=== PATIENT | female | born 1955 | race Caucasian/White ===

== ENCOUNTER 2017-09-18 14:02 | Inpatient (IN) | payer OTHER, SELFPAY ==
[~2017-09-18 14:02] MED LIST: ISOVUE-370 76%-LOCM 1 ML ONE
[2017-09-18] MEDS ORDERED: Albuterol Sulfate 2.5 mg/3 ml Neb ONE (14:32)
[2017-09-18] MEDS ORDERED: Magnesium Sulfate 2 GM/100 ML BAG ONE (14:34)
[2017-09-18 14:39] LABS: Actual Bicarbonate (HCO3a) 18.9 mEq/L (22-26); Base Excess (BEa) -5.9 mEq/L (0 (+/-) 2.5); CO2 Tension 34.8 mmHg (35.0-45.0); Hematocrit-ABG 43.7 % (36.0-47.0); Hemoglobin (Hb) 13.2 g/dL (12.0-16.0); O2 Tension (PaO2) 232.2 mmHg (80.0-100.0); pH, Arterial 7.35 (7.35-7.45)
[2017-09-18 14:40] LABS: Analyzer IN Cardio ER; Calcium, Ionized 1.2 mmol/L (1.12-1.30); Puncture Site RRA
[2017-09-18 14:51] LABS: #Neutrophils 10.9 thou/uL (1.40-6.50); %Basophils 0.1 % (0.0-1.0); %Eosinophils 0.2 % (0.0-10.0); %Lymphocytes 7.5 % (21.0-51.0); %Monocytes 7.5 % (0.0-10.0); %Neutrophils 84.6 % (42.0-75.0); Hemoglobin 13.6 g/dL (12.0-16.0); Mean Corpuscular HGB CONC 33.2 g/dL (32.0-36.0); Mean Corpuscular Hemoglobin 32.7 pg (27.0-31.0); Mean Corpuscular Volume 98.8 fl (81.0-99.0); Platelet Count 400 thou/uL (130-400); RBC Distribution Width 11.7 % (11.5-14.5); Red Blood Cell (RBC) Count 4.16 mill/uL (4.20-5.40); White Blood Cell (WBC) Count 12.9 thou/uL (4.8-10.8)
[2017-09-18] MEDS ORDERED: Lorazepam 2 MG/ML VIAL ONE (14:55)
--- NOTE | 2017-09-18 14:57 | RAD ---
UPRIGHT PORTABLE CHEST ONE VIEW: HISTORY: A 62-year-old female with a history of difficulty breathing and coughing up bloody droplets. COMPARISON: 12/20/2016 FINDINGS: Monitor leads overly the chest. Hyperinflation and chronic lung changes. Stable somewhat poorly cir cumscribed opacity changes in the right upper lobe and both bases. No confluent pneumonia, overt anuj ma, or pleural effusion. No significant cardiomegaly. IMPRESSION: Stable hyperinflation and bilateral chronic lung changes. No significant acute process. POS: [facility]
[2017-09-18 15:14] LABS: ALT (SGPT) 11 U/L (8-55); AST (SGOT) 23 U/L (5-34); Albumin 3.9 g/dL (3.4-4.8); Alkaline Phosphatase 100 U/L (40-150); Anion Gap 15 mmol/L (10-20); BUN (Urea Nitrogen) 8 mg/dL (9.8-20.1); Bilirubin, Total 0.8 mg/dL (0.2-1.2); Calc. Creatinine Clearance 0 mL/min (70-130); Calcium 8.7 mg/dL (7.8-10.44); Carbon Dioxide 18 mmol/L (23-31); Chloride 99 mmol/L (98-107); Estimated GFR-MDRD Greater than 90; Globulin 2.3 g/dL (2.4-3.5); Glucose 134 mg/dL (80-115); Potassium 4.1 mmol/L (3.5-5.1); Protein, Total 6.2 g/dL (6.0-8.3); Sodium 128 mmol/L (136-145)
[2017-09-18 15:31] LABS: CKMB 16.7 ng/mL (0-6.6); Troponin I 2.673 ng/mL (< 0.028)
[2017-09-18] MEDS ORDERED: Morphine 4 MG/ML VIAL ONE (15:36)
[2017-09-18] MEDS ORDERED: Aspirin 325 MG TAB ONE (17:28)
--- NOTE | 2017-09-18 17:35 | CT ---
CT ANGIOGRAM CHEST 09/18/17 COMPARISON: None. HISTORY: Dyspnea, hemoptysis, left sided back pain with shortness of breath. TECHNIQUE: Serial axial CT imaging obtained at 2.5 mm intervals from thoracic inlet through upper abdomen with i ntravenous contrast using a CT angiogram protocol. Coronal and oblique sagittal 3D reformatted imagin g obtained. COMPARISON: Chest CT with contrast 10/19/15. FINDINGS: There is hypodensity in the renal hilum on the left, similar when compared to the prior examination, suggesting left renal cyst disease and/or possible incompletely imaged stable left UVJ obstruction. Upper abdomen demonstrates prominent atherosclerotic calcification of the abdominal aorta and its bra nches. No axillary, hilar, or mediastinal lymphadenopathy. No pleural, pericardial, or mediastinal fluid is seen. There is scattered atherosclerotic calcification of the descending thoracic aorta. There is good opacification of the pulmonary arterial vasculature with no evidence for acute pulmonar y embolism. When compared to the prior examination, there are new numerous peripheral nodular densities clustered within the posterior inferior left lower lobe from axial image 74 through axial image 63, measuring up to 1.6 cm. There are severe emphysematous changes noted throughout both lungs. There are increased linear inters titial densities seen within the extreme left lung apex, similar when compared to the prior exam. There is extensive architectural distortion of lung parenchyma in the right lung apex. This includes an area of mass-like opacity within the superior most aspect of the right upper lobe measuring approx imately 1.7 cm, unchanged when compared to the 2016 exam. There is a cavitary lesion with irregular p eripheral margins in the right upper lobe measuring up to 2.4 cm, similar when compared to the prior exam as well. Inferior to this is extensive linear scar formation, stable as well. No acute findings are noted within the right middle or right lower lobe. The bones are markedly demineralized. There are numerous fractures identified throughout the imaged s pine, difficult to characterize secondary to positioning of the patient on the CT table. These wedge compression fractures include T6, T7, T8, T9, T10, T11, and T12, as well as L1, L2, L3, and L4. IMPRESSION: 1. No evidence for acute pulmonary embolism. 2. Severe emphysematous changes. 3. Extensive new clustered nodular densities in the left lower lobe. The multiplicity and cluste red nature of these findings suggest an atypical infectious process. Short term followup CT examinati on in 6-8 weeks, following treatment advised to document resolution. 4. Extensive scar formation with areas of chronic cavitary change within right upper lobe. Code T POS: [facility]
[2017-09-18 19:29] LABS: Lactic Acid 2.4 mmol/L (0.5-2.2)
[2017-09-18] MEDS ORDERED: Acetaminophen 325 MG TAB PO PRN (20:42)
[2017-09-18] MEDS ORDERED: Mag-Al 1200 mg/1200 mg/30 ML UDCUP PO PRN (20:42)
[2017-09-18 21:43] LABS: Troponin I 3.145 ng/mL (< 0.028)
[2017-09-18] MEDS ORDERED: Enoxaparin Sodium 40 MG/0.4 ML SYRINGE SC SCH (22:00)
[2017-09-18] MEDS: Lorazepam 2 MG/ML VIAL SLOW IVP PRN (22:35)
[2017-09-18] MEDS: Sodium Chloride 0.9% 1,000 ML IV SCH (22:36)
[2017-09-18] MEDS: Docusate 100 MG CAP PO SCH (22:37)
[2017-09-18] MEDS: Famotidine 20 MG TAB PO SCH (22:37)
[2017-09-18] MEDS: Nitroglycerin 2% Ointment 1 INCH/1 GM Packet TOP SCH (22:38)
--- NOTE | 2017-09-18 22:47 | HP ---
PRIMARY CARE PHYSICIAN: Dr. Whitaker. CHIEF COMPLAINT: Cough and coughing up blood. HISTORY OF PRESENT ILLNESS: Ms. Maguire is a pleasant 62-year-old female that has a history of severe C OPD with chronic respiratory failure secondary to that. She was in her usual state of health until y , she says that she woke up in the morning and had severe muscle spasms in her back a nd shoulders. It was so painful that she could barely breathe. She says that she took a bunch of tr eatments for her lungs such as her neb treatments, she took an extra dose of steroids and says by the end of the day that night, her symptoms actually got better. She did noticed the cough, which was p roductive of some greenish sputum around that time as well. However, the following morning, which is the morning of admission, she says that she again woke up in the morning, started having some coughi ng and then basically could not catch her breath after that. She says that she basically could not r ecover, she tried doing the same thing over again by giving herself neb treatments, however, it did n ot improve and then she noticed that she was coughing up some vianey blood and this is the reason she called the ambulance and was brought to the hospital. She denies having any fevers or chills, no nig ht sweats. She has had very poor appetite and has barely been able to eat anything in the past 3 day s. She says when she tries to eat, she gets so short of breath that she basically cannot. The patie yobani was seen in the ER. Her D-dimer was elevated and for this reason, CT angiogram was done. There w as no evidence of pulmonary embolism, but there was evidence of multifocal pneumonia. Her troponin w as also elevated and for this reason, she is being admitted. REVIEW OF SYSTEMS: Constitutional: Again, no fevers or chills, no night sweats. She suspects that she has lost some weight. HEENT: No visual changes, no sore throat, rhinorrhea, or neck pain, no ad enopathy. Pulmonary: As the history of present illness. Cardiovascular: She denies chest pain. S he has constant shortness of breath. There is no PND, no orthopnea. Gastrointestinal: No abdominal pain, no nausea, no vomiting, no change in bowels. Genitourinary: No urinary frequency or hematuri a, no hesitancy. Neurologic: No focal weakness or numbness, no seizures. Psychiatric: No symptoms of anxiety or depression. PAST MEDICAL HISTORY: Significant for osteoporosis, chronic low back pain, restless legs syndrome an d severe chronic obstructive pulmonary disease. PAST SURGICAL HISTORY: Negative. SOCIAL HISTORY: She is single. She is currently a smoker, she says she quit yesterday. She has bee n smoking anywhere from a pack to 3 packs a day for 40 years. She drinks a bottle of beer almost leidy ly, occasional wine. She is single, has one daughter who is 32. She is her surrogate decision maker and she wishes to be a FULL CODE. FAMILY HISTORY: Significant for heart disease in her father. ALLERGIES: ERYTHROMYCIN, EPINEPHRINE, DECONGESTANTS as well as KETAMINE. She denies being allergic to tramadol. PHYSICAL EXAMINATION: GENERAL: The patient is alert and oriented. She is in some distress due to dyspnea. VITAL SIGNS: Stable. HEENT: Pupils are equal, round, and reactive. Extraocular muscles are intact. Her sclerae are anic teric. Throat: There is no erythema, no exudates. NECK: No adenopathy, no bruits. LUNGS: She has decreased air movement and some scattered wheezing, but no rales that I could appreci ate. CARDIOVASCULAR: She has normal S1, S2. There is no S3 or S4. No murmurs or clicks, no rubs. ABDOMEN: Soft, it is nontender, nondistended. Positive for bowel sounds. No rebound, no guarding. EXTREMITIES: There is no edema. NEUROLOGICAL: The exam is nonfocal. LABORATORY DATA: Her lab results were reviewed. She had a slightly elevated white blood cell count and her troponin was elevated at approximately 2 and as previously mentioned, she had a CT angiogram of the chest which was significant or consistent with a multifocal pneumonia. The patient also had a low sodium level of 128. ASSESSMENT AND PLAN: 1. This is a 62-year-old female that is admitted with a severe pneumonia, with sepsis as well as vj denced by the elevated white blood cell count and lactic acid level and elevated troponin. She also likely has a bvc-GT-zsaiikbew myocardial infarction type 2 related to the severe pneumonia and sepsis , and also has hyponatremia likely as a result of the lung disease. She will be admitted and started on broad spectrum IV antibiotics. Since she has an allergy to ERYTHROMYCIN, we will go with Levaqui n for now. There is no recent history of hospitalization, so again for now we will continue with Lev aquin solely. We will go ahead and place her on IV steroids as well and DuoNebs. Given the severity of her chronic obstructive pulmonary disease, we will consult Pulmonary Medicine. 2. For the utd-OH-nusaqpgha myocardial infarction type 2, an echocardiogram will be obtained. It is also noted she had some low voltage on her EKG as well and the echo will be helpful to help assess t his and trend her cardiac enzymes. We will hold off on any anticoagulation due to the hemoptysis and treat her with aspirin and await further recommendations from Cardiology. 3. With regard to the hyponatremia, we will check urine sodium and serum osmolality and place her on normal saline for now. This can be changed or adjusted based on the results of the laboratory work to help evaluate the hyponatremia.
[2017-09-19 01:24] LABS: Troponin I 2.754 ng/mL (< 0.028)
[2017-09-19 03:25] LABS: #Eosinphils 0.1 thou/uL (0.0-0.7); #Lymphocytes 1.7 thou/uL (1.20-3.40); #Monocytes 1.1 thou/uL (0.11-0.59); #Neutrophils 8.1 thou/uL (1.40-6.50); %Basophils 0.4 % (0.0-1.0); %Eosinophils 1.1 % (0.0-10.0); %Lymphocytes 15.6 % (21.0-51.0); %Monocytes 10.3 % (0.0-10.0); %Neutrophils 72.6 % (42.0-75.0); Hemoglobin 13.3 g/dL (12.0-16.0); Mean Corpuscular HGB CONC 33.9 g/dL (32.0-36.0); Mean Corpuscular Hemoglobin 33.1 pg (27.0-31.0); Mean Corpuscular Volume 97.8 fl (81.0-99.0); Mean Platelet Volume 6.2 fL (7.4-10.4); Platelet Count 341 thou/uL (130-400); RBC Distribution Width 11.9 % (11.5-14.5); Red Blood Cell (RBC) Count 4.01 mill/uL (4.20-5.40); White Blood Cell (WBC) Count 11.1 thou/uL (4.8-10.8)
[2017-09-19 03:52] LABS: Anion Gap 13 mmol/L (10-20); BUN (Urea Nitrogen) 8 mg/dL (9.8-20.1); Calc. Creatinine Clearance 67 mL/min (70-130); Calcium 8.8 mg/dL (7.8-10.44); Carbon Dioxide 23 mmol/L (23-31); Cardiac Risk 2.1 (Less than 4.5); Chloride 97 mmol/L (98-107); Cholesterol 147 mg/dl (< 200 Desired); Estimated GFR-MDRD 86; Glucose 78 mg/dL (80-115); HDL Cholesterol 69 mg/dL (>60 Neg Risk); LDL Cholesterol, Calculated 62 mg/dL; Potassium 4.4 mmol/L (3.5-5.1); Sodium 129 mmol/L (136-145); Triglycerides 80 mg/dL (Less than 150)
[2017-09-19 03:57] LABS: Troponin I 3.226 ng/mL (< 0.028)
[2017-09-19] MEDS: HYDROcodone/Acetaminophen 7.5/325 mg Tablet PO PRN (04:52)
[2017-09-19] MEDS: Mometasone/Formoterol 120 PUFF INHALER INH SCH ×2 (07:22→18:31)
--- NOTE | 2017-09-19 07:57 | PDOC.PN ---
- Subjective Encounter Start Date: 09/19/17 Encounter Start Time: 07:55 Subjective: seen and examined - Objective Resuscitation Status: Resuscitation Status FULL:Full Resuscitation Vital Signs & Weight: Vital Signs (12 hours) Temp Pulse Resp BP Pulse Ox 09/19/17 07:30 98.0 F 100 22 H 94/63 100 09/19/17 07:23 94 L 09/19/17 07:21 104 H 20 94 L 09/19/17 04:00 97.9 F 100 28 H 94/60 99 09/19/17 00:00 97.8 F 106 H 32 H 89/64 L 96 09/18/17 21:46 111 H 20 95 09/18/17 20:42 95 09/18/17 20:21 97.6 F 112 H 22 H 100/60 94 L I&O: 09/18/17 09/19/17 09/20/17 06:59 06:59 06:59 Intake Total 100 Balance 100 Result Diagrams: 09/19/17 03:04 09/19/17 03:04 Phys Exam - Physical Examination Constitutional: NAD HEENT: PERRLA, moist MMs, sclera anicteric, TM's clear, oral pharynx no lesions Neck: no nodes, no JVD, supple, full ROM Respiratory: no wheezing, no rales, no rhonchi, clear to auscultation bilateral Cardiovascular: RRR, no significant murmur, no rub Gastrointestinal: soft, non-tender, no distention, positive bowel sounds Musculoskeletal: no edema, pulses present Dx/Plan (1) Pneumonia Code(s): J18.9 - PNEUMONIA, UNSPECIFIED ORGANISM Status: Acute (2) Hemoptysis Code(s): R04.2 - HEMOPTYSIS Status: Acute (3) Cough with hemoptysis Code(s): R04.2 - HEMOPTYSIS Status: Acute (4) NSTEMI (non-ST elevated myocardial infarction) Code(s): I21.4 - NON-ST ELEVATION (NSTEMI) MYOCARDIAL INFARCTION Status: Acute (5) Abnormal cardiac enzyme level Code(s): R74.8 - ABNORMAL LEVELS OF OTHER SERUM ENZYMES Status: Acute (6) COPD exacerbation Code(s): J44.1 - CHRONIC OBSTRUCTIVE PULMONARY DISEASE W (ACUTE) EXACERBATION Status: Acute (7) Hyponatremia Code(s): E87.1 - HYPO-OSMOLALITY AND HYPONATREMIA Status: Acute (8) COPD (chronic obstructive pulmonary disease) Status: Chronic - Plan plan discussed w/ family, continue antibiotics, PT/OT, geriatric social worker, respiratory therapy Awaiting cardiology input -: ?Need for anticoagulants given history of hemoptysis-defer to cardiology * .
[2017-09-19] MEDS: Nitroglycerin 2% Ointment 1 INCH/1 GM Packet TOP SCH (08:10)
[2017-09-19] MEDS: Aspirin 325 MG TAB PO SCH (08:24)
[2017-09-19] MEDS: traMADol HCl 50 MG TAB PO PRN ×3 (08:24→18:21)
[2017-09-19] MEDS: Docusate 100 MG CAP PO SCH ×2 (08:26→20:37)
[2017-09-19] MEDS: Famotidine 20 MG TAB PO SCH ×2 (08:26→20:37)
[2017-09-19] MEDS ORDERED: Enoxaparin Sodium 40 MG/0.4 ML SYRINGE SC SCH (09:00)
[2017-09-19] MEDS ORDERED: Enoxaparin Sodium 60 MG/0.6 ML SYRINGE SC SCH (09:00)
--- NOTE | 2017-09-19 10:34 | CON ---
DATE OF CONSULTATION: 09/19/2017 DATE OF ADMISSION: 09/19/2017 INDICATION FOR CONSULTATION: Abnormal cardiac enzymes and dyspnea. HISTORY OF PRESENT ILLNESS: This is a very unfortunate 62-year-old female who has a long history of COPD with severe exacerbations in the past. She has emphysema. She continues to smoke until she sa id she stopped just yesterday. She was admitted to the hospital after she awoke yesterday morning meade ving hemoptysis and COPD exacerbation, unable to breathe. She had nebulizer treatments and then she became significantly fatigued, eventually presented to the emergency room. She did complain of some discomfort in her chest, some chest pressure, but also has been coughing and she has diffuse back pro blems with chronic pain. She has had compression fractures in the past and when she coughs she has e xcruciating back pain and she was to the point that she can no longer even eat or breathe and so pres ented to the emergency room. She denied any significant chest pain until of specifically asked and s he described this as now as being a pressure. Mainly her complaints were from back pain and the coug yudy. On arrival here, she was found to have abnormal cardiac enzymes compatible with a non-ST segme nt elevation myocardial infarction or non-STEMI type 2 myocardial infarction with elevated cardiac en zymes. She did have admission a little over a year ago with some similar symptoms, but the patient u nfortunately was unable to lie down even for a stress test or cardiac catheterization. She is pretty much in the sitting position due to back pain and also her shortness of breath. Her cardiac enzymes at this time with peaked, the highest was 3.2 with MB of 16.7, certainly very suspicious for myocard ial infarction. Her LDL was only 62. At this time, she remains stable. Her EKG does not show any acute ST segment changes. She does have decreased R-wave progression in V1 through V3, which could be considered an old anterior myocardial infarction. She did have a similar EKG in the past and underwent an echocardiogram, I believe, which did not show any evidence of ischemia or any evidence of myocardial infarction. PAST MEDICAL HISTORY: COPD, chronic back problems, osteoporosis, compression fractures, irritable peg wel syndrome. SOCIAL HISTORY: She is single. She has 1 child who is a pharmacist, who lives up [address]. Tobacco: She smoked 1-3 packs a day for many years, over 40 years and says that now she has stopped due to the hemoptysis. She became frightened and it will be interesting to see whether or not she remains abst inent. She also drinks alcohol 3-5 drinks a day, beer and occasional wine. FAMILY HISTORY: Father had coronary artery disease. MEDICATIONS: Include aspirin, Lovenox, venlafaxine, Solu-Medrol, Skelaxin, nitroglycerin. ALLERGIES: She is allergic to EPINEPHRINE, ERYTHROMYCIN and KETAMINE. REVIEW OF SYSTEMS: She says it is difficult to breathe. She has a significant cough. She has episo rufino just yesterday of hemoptysis and now bloating and also constipation. Otherwise, 12 point review of systems for this lady was unremarkable. LABORATORY DATA: Shows a sodium of 129, creatinine is 0.69, WBC 11.1, glucose is 86 and the cardiac enzymes are as noted. LDL was only 62. PHYSICAL EXAMINATION: GENERAL: Reveals a very ill appearing, fragile female who appears older than her stated age of 62 ye ars old, she is almost emaciated. She is sitting up in the bed and having some shortness of breath a t times even to talk and occasional cough at which time she developed significant pain in the back. VITAL SIGNS: Blood pressure is 94/63, heart rate is 100 and regular, temperature 98, O2 saturation 9 4-100%, respiratory rate 22. HEENT: Shows the head to be normocephalic and atraumatic. Carotid pulses are present. I cannot hea r any significant bruits at this time, but she does have increased upper airway noise. LUNGS: Her chest has decreased breath sounds throughout, but did not hear any rales, rhonchi or whee zing. Somewhat decreased breath sounds in the right base, but otherwise no significant abnormalities , but this may be due to the inability to take a deep breath in. CARDIOVASCULAR: Slight tachycardia, but no significant murmurs, heaves, thrills, bruits or rubs. ABDOMEN: Soft and nontender. Positive bowel sounds are present. EXTREMITIES: Show no clubbing, no cyanosis or edema. Left pedal pulses are present. Right pedal pu lses are difficult to palpate, popliteal pulses are present, but the right popliteal pulse is also sl ightly decreased. NEUROLOGIC: The patient appears to be intact. Her EKG shows a sinus rhythm, decreased voltage throughout this most likely compatible with her COPD and also had decreased R-wave progression in V1 through V3, which may be consistent with old inferior myocardial infarction. There were no acute changes to indicate ischemia and she is actually asympto matic at this time as far as cardiac is concern. IMPRESSION: 1. Abnormal cardiac enzymes with a probable non-ST segment elevation myocardial infarction. This ma y be due to demand ischemia or type 2 myocardial infarction, but given her emaciated state and inabil ity to lie down even to do a cardiac catheterization or stress test is concerned, this is a somewhat difficult situation, also with her recent hemoptysis until this is determine if there is any signific ant bleeding ongoing, she is not a candidate for any type of anticoagulation at this time. Fortunate ly she is asymptomatic and there were no acute ST segment changes at the present time. 2. Severe chronic obstructive pulmonary disease and this is a chronic obstructive pulmonary disease exacerbation which may also be associated with her myocardial infarction, but this may have provoked a myocardial infarction due to strain and extra work of just trying to breathe. This lady is in a difficult situation. She has been seen by Dr. Donis in the past and he will need also to reevaluate whether or not she needs to undergo bronchoscopy is unclear. He will evaluate. She may just have some bleeding due to the extreme coughing that she had recently, she still has some ongoing. She may need to undergo further evaluation. At this time, we will continue to follow her. I would agree with the present management. Again, this is a very difficult situation. She wants t o be full code, but may need to discuss this issue further with her.
[2017-09-19] MEDS: Sodium Chloride 0.9% 1,000 ML IV SCH (13:43)
[2017-09-19 14:24] LABS: Osmolality, Urine 662 mOsm/kg (300-900)
[2017-09-19 14:39] LABS: Sodium, Urine 28 mmol/L (Not Available)
[2017-09-19 20:48] LABS: Hemoglobin 13.2 g/dL (12.0-16.0); Platelet Count 343 thou/uL (130-400)
[2017-09-19 21:05] LABS: Calc. Creatinine Clearance 77 mL/min (70-130); Estimated GFR-MDRD Greater than 90
[2017-09-20] MEDS ORDERED: PROVENTIL INHALER 6.7 G (200 INHALATIONS) INH PRN (00:59)
--- NOTE | 2017-09-20 01:03 | CON ---
DATE OF CONSULTATION: 09/19/2017 HISTORY OF PRESENT ILLNESS: Mann Maguire is a 62-year-old female with severe COPD. She presented with shortness of breath and hemoptysis. The day prior to admission she had muscle spasm in her high chao k, between her shoulder blades, but this resolved as the day progressed. She had some green sputum p roduction prior to going to bed, but said she felt reasonably well when she went to bed. The followi , she had hemoptysis and increasing shortness of breath that did not get better with nebulizer treatment, so she called an ambulance. She also had decreased p.o. intake. PAST MEDICAL HISTORY: Remarkable for osteoporosis, back pain, restless legs, COPD and she also has h ad 2 pulmonary nodules followed in the past by Dr. Donis, that did not enlarge, that are felt to be benign. SOCIAL HISTORY: She is still a smoker. She is still a drinker. She is not a drug user. ALLERGIES: She reports allergies to ERYTHROMYCIN, EPINEPHRINE, DECONGESTANTS and KETAMINE as well as TRAMADOL. FAMILY HISTORY: Positive for heart disease. Negative for lung disease in early age. She has one jimmy hirsch who is 32 years of age. REVIEW OF SYSTEMS: Ten-point is otherwise negative. PHYSICAL EXAMINATION: GENERAL: She is in no distress. She says she feels better than she felt yesterday. She is afebrile , heart rate in the 100, respiratory rate is 22, oximetry is 95% on room air. VITAL SIGNS: Blood pressure 104/74. HEENT: Pupils are equal. Sclerae is anicteric. She is very thin. She has temporal muscle wasting. She has no cervical lymphadenopathy. NECK: Otherwise unremarkable. LUNGS: Distant and clear. HEART: Regular rhythm. S1 and S2 are distant. No murmur or gallop. ABDOMEN: Soft and nontender. EXTREMITIES: Without clubbing, cyanosis or edema. NEUROLOGIC: Nonfocal. LABORATORY DATA: Chest CT was reviewed, it shows no thromboembolic disease but nodular alveolar infi ltrate in her left base posteriorly. IMPRESSION: 1. Pneumonia. 2. Chronic obstructive pulmonary disease exacerbation. 3. History of pulmonary nodules that have not enlarged over several years, likely secondary to old g ranulomatous disease. PLAN: Continue steroids, nebulizer treatments, antimicrobial therapy. She can be switched to p.o. a ntibiotics in the morning as well as probably p.o. steroids in the morning. She is anticoagulated for abnormal cardiac enzymes, Cardiology is following. I think it would be angelica ropriate to minimize her full dose anticoagulation unless there is an ongoing need for full anticoagu lation. ADDENDUM: This is a 50 minute consult and at least 50% of the time was spent coordinating care on th e unit.
[2017-09-20] MEDS: Sodium Chloride 0.9% 1,000 ML IV SCH ×2 (03:48→21:42)
[2017-09-20] MEDS: traMADol HCl 50 MG TAB PO PRN ×3 (04:12→16:59)
[2017-09-20] MEDS: Mometasone/Formoterol 120 PUFF INHALER INH SCH ×2 (06:32→19:35)
[2017-09-20] MEDS: Famotidine 20 MG TAB PO SCH ×2 (08:50→21:36)
[2017-09-20] MEDS: Aspirin 325 MG TAB PO SCH (08:50)
[2017-09-20] MEDS: Docusate 100 MG CAP PO SCH ×2 (08:57→21:37)
--- NOTE | 2017-09-20 09:17 | PDOC.PN ---
- Subjective Encounter Start Date: 09/20/17 Encounter Start Time: 09:15 Subjective: Seen and examined- - Objective Resuscitation Status: Resuscitation Status FULL:Full Resuscitation Vital Signs & Weight: Vital Signs (12 hours) Temp Pulse Resp BP Pulse Ox 09/20/17 07:30 98.1 F 90 20 98/63 95 09/20/17 06:32 90 20 100 09/20/17 06:19 100 09/20/17 06:15 90 20 100 09/20/17 03:53 97.9 F 89 20 99/68 97 09/20/17 00:16 90 20 94 L 09/20/17 00:00 98.2 F 94 16 105/77 97 Weight Admit Weight 109 lb 0.044 oz Weight 109 lb 0.044 oz I&O: 09/19/17 09/20/17 09/21/17 06:59 06:59 06:59 Intake Total 100 2296 Output Total 400 Balance 100 1896 Result Diagrams: 09/19/17 20:32 09/19/17 20:32 Phys Exam - Physical Examination Constitutional: NAD HEENT: PERRLA, moist MMs, sclera anicteric, TM's clear, oral pharynx no lesions Neck: no nodes, no JVD, supple, full ROM Respiratory: no rales, wheezing present Cardiovascular: RRR, no significant murmur, no rub Gastrointestinal: soft, non-tender, no distention, positive bowel sounds Musculoskeletal: no edema, pulses present Dx/Plan (1) Pneumonia Code(s): J18.9 - PNEUMONIA, UNSPECIFIED ORGANISM Status: Acute (2) Hemoptysis Code(s): R04.2 - HEMOPTYSIS Status: Acute (3) Cough with hemoptysis Code(s): R04.2 - HEMOPTYSIS Status: Acute (4) NSTEMI (non-ST elevated myocardial infarction) Code(s): I21.4 - NON-ST ELEVATION (NSTEMI) MYOCARDIAL INFARCTION Status: Acute (5) Abnormal cardiac enzyme level Code(s): R74.8 - ABNORMAL LEVELS OF OTHER SERUM ENZYMES Status: Acute (6) COPD exacerbation Code(s): J44.1 - CHRONIC OBSTRUCTIVE PULMONARY DISEASE W (ACUTE) EXACERBATION Status: Acute (7) Hyponatremia Code(s): E87.1 - HYPO-OSMOLALITY AND HYPONATREMIA Status: Acute (8) COPD (chronic obstructive pulmonary disease) Status: Chronic - Plan continue antibiotics, PT/OT, psychotherapist social worker, respiratory therapy -Difficult situation to manage-unable to lay flat for cardiac cath -: -Not a candidate for anticoagulation -: -Pulmonary/Cardiology following -: -Cont antibiotics/steroids/nebs * .
--- NOTE | 2017-09-20 09:50 | PRG ---
DATE OF SERVICE: 09/20/2017 SUBJECTIVE: She is complaining of being on too much prednisone and not having access to Mucinex. Sh vic has had no more hemoptysis. PHYSICAL EXAMINATION: VITAL SIGNS: Her temperature is 98.1, pulse 90, respirations 20, blood pressure 90/63. HEENT: Unremarkable. NECK: No JVD. LUNGS: She has a few inspiratory crackles in the bases. No wheezing. CARDIAC: S1 and S2 regular. ABDOMEN: Soft. EXTREMITIES: No edema. LABORATORY DATA: No new labs were obtained today. No culture results have yielded positive results. ASSESSMENT: 1. Left lower lobe pneumonia. 2. Chronic obstructive pulmonary disease. 3. Chronic interstitial changes on x-ray. PLAN: The patient will continue IV antibiotics today. I have encouraged her to get up and move arou nd. I think her anticoagulation should be minimized to the greatest extent possible. I will reduce her prednisone dose. I have added Mucinex. She will need a repeat CT scan in about 2-3 months. Fro m my standpoint, she can be transferred to the medical floor when okay by Cardiology.
[2017-09-20] MEDS ORDERED: predniSONE 20 MG TAB PO SCH (10:15)
[2017-09-20] MEDS: guaiFENesin/DM ER PO SCH ×2 (12:39→21:36)
--- NOTE | 2017-09-20 14:10 | PDOC.CTH ---
Cardiology Progress Note - Subjective The pt seen and examined. No overnight events. No cardiac complaints. She expressed her concern about d/c home by herself due to her chronic back pain. - Objective Vital Signs Temp Pulse Resp BP Pulse Ox 09/20/17 12:43 88 24 H 09/20/17 08:55 98.1 F 90 20 95 09/20/17 07:30 98.1 F 90 20 98/63 95 09/20/17 06:32 90 20 100 09/20/17 06:19 100 09/20/17 06:15 90 20 100 09/20/17 03:53 97.9 F 89 20 99/68 97 Admit Weight 109 lb 0.044 oz Weight 109 lb 0.044 oz 09/19/17 09/20/17 09/21/17 06:59 06:59 06:59 Intake Total 100 2296 Output Total 400 Balance 100 1896 - Physical Examination General/Neuro: alert & oriented x3 Neck: no JVD present Lungs: other: (diminished at bases) Heart: RRR Abdomen: soft Extremities: other: (No edema) - Telemetry Telemetry Rhythm: SR - Labs Result Diagrams: 09/19/17 20:32 09/19/17 20:32 Troponin/CKMB CK-MB (CK-2) 16.7 ng/mL (0-6.6) H* 09/18/17 14:39 Troponin I 3.226 ng/mL (< 0.028) H* 09/19/17 03:04 - Assessment/Plan 1. Elevated trop. - Echo on 09/19/17 showed EF 30-35%, grade I diastolic dysfunction, akinetic in septum and [place], trace MR, and mild MR. The pt is not a good candidate for Cardiac cath due to unable to lay flat. Not on any anticoagulation due to hx of Hemoptysis. on ASA. Not on BBlocker due to hx of COPD. 2. Resp. failure 2ndary to PNA and COPD exacerbation - stable with RA at this moment; managed by medical education coordinator 3. Hemoptysis - no episodes since this admission 4. Hyponatremia - slightly improving. Cont. monitor 5. Ex-smoker, quit on 09/18/17 - smoking cessation education given to the pt MAR reviewed Review of Systems - Review of Systems Constitutional: reports: weakness EENTM: reports: no symptoms reported Respiratory: reports: SOB with excertion Cardiac (ROS): reports: no symptoms reported ABD/GI: reports: no symptoms reported : reports: no symptoms reported Musculoskeletal: reports: see HPI
[2017-09-20] MEDS: HYDROcodone/Acetaminophen 7.5/325 mg Tablet PO PRN (21:44)
[2017-09-21] MEDS: HYDROcodone/Acetaminophen 7.5/325 mg Tablet PO PRN ×5 (02:16→22:37)
[2017-09-21] MEDS: Mometasone/Formoterol 120 PUFF INHALER INH SCH ×2 (06:50→19:18)
[2017-09-21] MEDS: traMADol HCl 50 MG TAB PO PRN ×2 (08:06→19:03)
[2017-09-21] MEDS ORDERED: predniSONE 20 MG TAB PO SCH (09:00)
[2017-09-21] MEDS: Docusate 100 MG CAP PO SCH ×2 (10:28→20:50)
[2017-09-21] MEDS: Sodium Chloride 0.9% 1,000 ML IV SCH (10:28)
[2017-09-21] MEDS: Aspirin 325 MG TAB PO SCH (10:29)
[2017-09-21] MEDS: guaiFENesin/DM ER PO SCH ×2 (10:29→20:49)
[2017-09-21] MEDS: Famotidine 20 MG TAB PO SCH ×2 (10:30→20:50)
--- NOTE | 2017-09-21 12:50 | PDOC.PN ---
- Subjective Encounter Start Date: 09/21/17 Encounter Start Time: 12:48 Ms. Maguire was seen today in follow-up. She says she feels more tired today than when she came in. She wonders if she should be on a high steroid dose. - Objective Resuscitation Status: Resuscitation Status FULL:Full Resuscitation MAR Reviewed: Yes Vital Signs & Weight: Vital Signs (12 hours) Temp Pulse Resp BP Pulse Ox 09/21/17 11:59 98.0 F 102 H 18 118/83 100 09/21/17 11:47 100 24 H 09/21/17 06:50 99 20 100 09/21/17 06:37 100 09/21/17 06:35 99 20 100 09/21/17 05:28 93 18 100 09/21/17 03:40 100 09/21/17 03:30 98.1 F 87 20 115/87 100 09/21/17 01:26 99 Weight Admit Weight 109 lb 0.044 oz Weight 107 lb 4.8 oz I&O: 09/20/17 09/21/17 09/22/17 06:59 06:59 06:59 Intake Total 2296 1220 Output Total 400 Balance 1896 1220 Result Diagrams: 09/19/17 20:32 09/19/17 20:32 Phys Exam - Physical Examination HEENT: PERRLA Respiratory: wheezing present + faint wheeze, no rhonchi or rales poor air movement Cardiovascular: RRR, no significant murmur, no rub Gastrointestinal: soft, non-tender, positive bowel sounds Musculoskeletal: no edema Dx/Plan (1) Acute and chronic respiratory failure Code(s): J96.20 - ACUTE AND CHR RESP FAILURE, UNSP W HYPOXIA OR HYPERCAPNIA Status: Acute (2) Chronic combined systolic and diastolic CHF (congestive heart failure) Code(s): I50.42 - CHRONIC COMBINED SYSTOLIC AND DIASTOLIC HRT FAIL Status: Acute (3) NSTEMI (non-ST elevated myocardial infarction) Code(s): I21.4 - NON-ST ELEVATION (NSTEMI) MYOCARDIAL INFARCTION Status: Acute (4) Pneumonia Code(s): J18.9 - PNEUMONIA, UNSPECIFIED ORGANISM Status: Acute (5) COPD exacerbation Code(s): J44.1 - CHRONIC OBSTRUCTIVE PULMONARY DISEASE W (ACUTE) EXACERBATION Status: Acute (6) Hyponatremia Code(s): E87.1 - HYPO-OSMOLALITY AND HYPONATREMIA Status: Acute - Plan * COPD exacerbation due to Pneumonia- slowly improving, she has severe deconditioning- will leave steroid dosing up to Pulmonary * Continue Duonebs and IV Levaquin * Continue PT/OT * NSTEMI- type 2- stable- avoid anticoagulation due to hemoptysis * Hemoptysis is improving
--- NOTE | 2017-09-21 18:05 | PRG ---
DATE OF SERVICE: 09/21/2017 SUBJECTIVE: The patient says she is somewhat more short of breath than yesterday and she now thinks that she was a little premature and asking for her prednisone dose to be decreased. PHYSICAL EXAMINATION: VITAL SIGNS: Temperature is 98.0, pulse 102, respirations 18, O2 sat 100% on 2 liters, blood pressur e 118/83. HEENT: Unremarkable. NECK: No JVD. LUNGS: Distant, but clear breath sounds. CARDIAC: S1 and S2 regular. ABDOMEN: Soft. EXTREMITIES: No edema. LABORATORY DATA: No new labs were done today. ASSESSMENT: 1. Left lower lobe pneumonia. 2. Chronic obstructive pulmonary disease. PLAN: I will bump her prednisone dose up. We will continue the breathing treatments and antibiotics . We would look towards discharging the patient by Saturday or Saturday.
--- NOTE | 2017-09-21 18:54 | PDOC.CTH ---
Cardiology Progress Note - Subjective No new issues. No more hemoptysis for now. No chest pain. - Objective Vital Signs Temp Pulse Resp BP Pulse Ox 09/21/17 16:00 97.9 F 105 H 20 111/70 93 L 09/21/17 14:16 100 24 H 09/21/17 11:59 98.0 F 102 H 18 118/83 100 09/21/17 11:47 100 24 H Admit Weight 109 lb 0.044 oz Weight 107 lb 4.8 oz 09/20/17 09/21/17 09/22/17 06:59 06:59 06:59 Intake Total 2296 1220 Output Total 400 Balance 1896 1220 - Physical Examination General/Neuro: alert & oriented x3 Neck: no JVD present Lungs: unlabored respirations Heart: RRR Abdomen: NT/ND Extremities: other: (no edema) - Telemetry Telemetry Rhythm: NSR - Labs Result Diagrams: 09/19/17 20:32 09/19/17 20:32 Troponin/CKMB CK-MB (CK-2) 16.7 ng/mL (0-6.6) H* 09/18/17 14:39 Troponin I 3.226 ng/mL (< 0.028) H* 09/19/17 03:04 - Assessment/Plan 1. NSTEMI, likely demand ischemia from pneumonia. 2. Hemoptysis 3. Severe COPD 4. Dilated CM EF at 30-35% 5. Left lower lobe pneumonia PLAN: - Conservative therapy for now as she is to frail ofr an invasive approach and she would not be able to lay flat at this time either. - No anticoagulation due to hemoptysis. - Will follow.
[2017-09-21] MEDS: predniSONE 20 MG TAB PO SCH (19:01)
[2017-09-21 20:00] LABS: Platelet Count 326 thou/uL (130-400)
[2017-09-21 20:20] LABS: Calc. Creatinine Clearance 81 mL/min (70-130); Estimated GFR-MDRD Greater than 90
[2017-09-22] MEDS: Lorazepam 2 MG/ML VIAL SLOW IVP PRN ×2 (01:03→08:50)
[2017-09-22] MEDS: Sodium Chloride 0.9% 1,000 ML IV SCH ×2 (01:51→17:53)
[2017-09-22] MEDS: HYDROcodone/Acetaminophen 7.5/325 mg Tablet PO PRN ×3 (03:05→19:52)
[2017-09-22] MEDS: Mometasone/Formoterol 120 PUFF INHALER INH SCH ×2 (06:48→18:45)
[2017-09-22] MEDS: traMADol HCl 50 MG TAB PO PRN ×2 (08:51→18:10)
[2017-09-22] MEDS: Famotidine 20 MG TAB PO SCH ×2 (08:51→19:50)
[2017-09-22] MEDS: predniSONE 20 MG TAB PO SCH ×2 (08:51→17:53)
[2017-09-22] MEDS: Docusate 100 MG CAP PO SCH ×2 (08:51→19:50)
[2017-09-22] MEDS: guaiFENesin/DM ER PO SCH ×2 (08:51→19:50)
[2017-09-22] MEDS: Aspirin 325 MG TAB PO SCH (08:51)
--- NOTE | 2017-09-22 11:15 | PDOC.PN ---
- Subjective Encounter Start Date: 09/22/17 Encounter Start Time: 11:15 Ms. Maguire was seen in follow-up. She says she had a lot of anxiety last night. She is unsure if it was the anxiety causing her to be short of breath or her lung disease. She feels a little better now. - Objective Resuscitation Status: Resuscitation Status FULL:Full Resuscitation MAR Reviewed: Yes Vital Signs & Weight: Vital Signs (12 hours) Temp Pulse Resp BP Pulse Ox 09/22/17 06:48 93 20 98 09/22/17 06:26 98 09/22/17 06:24 93 20 98 09/22/17 05:35 97.6 F 102 H 18 121/74 97 09/22/17 03:16 99 Weight Admit Weight 109 lb 0.044 oz Weight 108 lb 12.8 oz I&O: 09/21/17 09/22/17 09/23/17 06:59 06:59 06:59 Intake Total 1220 3120 Balance 1220 3120 Result Diagrams: 09/21/17 19:51 09/21/17 19:51 Phys Exam - Physical Examination Respiratory: no rales, no rhonchi, wheezing present + occasional wheeze, better air movement Cardiovascular: RRR, no significant murmur, no rub Gastrointestinal: soft, non-tender, positive bowel sounds Musculoskeletal: no edema Dx/Plan (1) Acute and chronic respiratory failure Code(s): J96.20 - ACUTE AND CHR RESP FAILURE, UNSP W HYPOXIA OR HYPERCAPNIA Status: Acute (2) Chronic combined systolic and diastolic CHF (congestive heart failure) Code(s): I50.42 - CHRONIC COMBINED SYSTOLIC AND DIASTOLIC HRT FAIL Status: Acute (3) NSTEMI (non-ST elevated myocardial infarction) Code(s): I21.4 - NON-ST ELEVATION (NSTEMI) MYOCARDIAL INFARCTION Status: Acute (4) Pneumonia Code(s): J18.9 - PNEUMONIA, UNSPECIFIED ORGANISM Status: Acute (5) COPD exacerbation Code(s): J44.1 - CHRONIC OBSTRUCTIVE PULMONARY DISEASE W (ACUTE) EXACERBATION Status: Acute (6) Hyponatremia Code(s): E87.1 - HYPO-OSMOLALITY AND HYPONATREMIA Status: Acute - Plan * Pneumonia- she has improved clinically- the sputum is clearing. She is nearing the end of antibiotic treatment. * NSTEMI type 2- demand ischemia- continue conservative management, and no anticoagulation * COPD exacerbation- improving * Severe Deconditioning- continue PT/OT
--- NOTE | 2017-09-22 13:11 | PRG ---
DATE OF SERVICE: 09/22/2017 SUBJECTIVE: Ms. Maguire is sleeping and I did not awaken her. OBJECTIVE: VITAL SIGNS: Temperature is 97.6, pulse 93, respirations 20, O2 sat 98% on 1 liter. LUNGS: Clear. CARDIAC: Regular, without murmur. ABDOMEN: Soft. LABORATORY DATA: No labs were done today. ASSESSMENT: 1. Left lower lobe pneumonia. 2. Chronic obstructive pulmonary disease. PLAN: I think it would be okay to go ahead and switch her over to oral antibiotic therapy. If she i s up and around, I think she could probably go home in the next day or two.
--- NOTE | 2017-09-22 17:38 | PDOC.CTH ---
Cardiology Progress Note - Subjective She feels better after nebs. No other issues. Denies any chest pain, tightness, pressure. - Objective Vital Signs Temp Pulse Resp BP Pulse Ox 09/22/17 13:08 84 20 09/22/17 06:48 93 20 98 09/22/17 06:26 98 09/22/17 06:24 93 20 98 09/22/17 05:35 97.6 F 102 H 18 121/74 97 Admit Weight 109 lb 0.044 oz Weight 108 lb 12.8 oz 09/21/17 09/22/17 09/23/17 06:59 06:59 06:59 Intake Total 1220 3120 Balance 1220 3120 - Physical Examination General/Neuro: alert & oriented x3, NAD Neck: no JVD present Lungs: unlabored respirations Heart: RRR Abdomen: NT/ND Extremities: other: (no edema) - Telemetry Telemetry Rhythm: NSR - Labs Result Diagrams: 09/21/17 19:51 09/21/17 19:51 Troponin/CKMB CK-MB (CK-2) 16.7 ng/mL (0-6.6) H* 09/18/17 14:39 Troponin I 3.226 ng/mL (< 0.028) H* 09/19/17 03:04 - Assessment/Plan 1. NSTEMI, likely demand ischemia from pneumonia. 2. Hemoptysis 3. Severe COPD 4. Dilated CM EF at 30-35% 5. Left lower lobe pneumonia PLAN: - Conservative therapy for now as she is to frail for an invasive approach and she would not be able to lay flat at this time either. - No anticoagulation due to hemoptysis. - Will follow.
[2017-09-23] MEDS: Sodium Chloride 0.9% 1,000 ML IV SCH ×2 (04:56→21:06)
[2017-09-23] MEDS: Lorazepam 2 MG/ML VIAL SLOW IVP PRN ×2 (04:57→21:01)
[2017-09-23] MEDS: traMADol HCl 50 MG TAB PO PRN (07:20)
[2017-09-23] MEDS: Mometasone/Formoterol 120 PUFF INHALER INH SCH ×2 (07:58→19:04)
[2017-09-23] MEDS: HYDROcodone/Acetaminophen 7.5/325 mg Tablet PO PRN ×3 (08:53→21:00)
[2017-09-23] MEDS: predniSONE 20 MG TAB PO SCH ×2 (08:53→16:29)
[2017-09-23] MEDS: guaiFENesin/DM ER PO SCH ×2 (08:53→21:00)
[2017-09-23] MEDS: Famotidine 20 MG TAB PO SCH ×2 (08:53→21:00)
[2017-09-23] MEDS: Aspirin 325 MG TAB PO SCH (08:53)
[2017-09-23] MEDS: Docusate 100 MG CAP PO SCH ×2 (08:54→21:00)
--- NOTE | 2017-09-23 09:37 | PRG ---
DATE OF SERVICE: 09/23/2017 Ms. Maguire is extremely depressed. She is complaining about everything. She says she is sore all over . PHYSICAL EXAMINATION: VITAL SIGNS: Temperature 97.8, pulse 87, respiration 20, O2 sat 100%, blood pressure 103/67. HEENT: Unremarkable. NECK: No JVD. CHEST: Clear without wheezing or rhonchi. CARDIAC: S1, S2 regular. ABDOMEN: Soft. EXTREMITIES: No edema. LABORATORY DATA: No new labs were obtained today. ASSESSMENT: Left lower lobe pneumonia. PLAN: She was switched over to oral antibiotics and oral steroids yesterday. She is acting like she is doing much worse than what is evident on her clinical exam. I do not know if some of this is mal ingering or not. My suggestion would be to move her to the medical floor and have her increase her a ctivity with hopeful discharge in the next day or two.
--- NOTE | 2017-09-23 09:45 | PDOC.PN ---
- Subjective Encounter Start Date: 09/23/17 Encounter Start Time: 09:43 Ms. Maguire says she is still not feeling much better. She says she is hurting all over. She now tells me that she has been told she may have some type of Connective Tissue disorder, and that her Primary Care Provider had planned to send her to a Transfer [facility] Operator [facility]. She is wondering if this could be affecting her. - Objective Resuscitation Status: Resuscitation Status FULL:Full Resuscitation MAR Reviewed: Yes Vital Signs & Weight: Vital Signs (12 hours) Temp Pulse Resp BP Pulse Ox 09/23/17 07:58 98 09/23/17 07:57 87 20 100 09/23/17 04:46 97.8 F 86 18 103/67 99 09/23/17 04:10 98 09/22/17 23:14 98 Weight Admit Weight 109 lb 0.044 oz Weight 107 lb 3.2 oz I&O: 09/22/17 09/23/17 09/24/17 06:59 06:59 06:59 Intake Total 3120 3420 Balance 3120 3420 Result Diagrams: 09/21/17 19:51 09/21/17 19:51 Phys Exam - Physical Examination HEENT: PERRLA Respiratory: wheezing present better air movement Cardiovascular: RRR, no significant murmur, no rub Gastrointestinal: soft, non-tender, positive bowel sounds Musculoskeletal: no edema Dx/Plan (1) Acute and chronic respiratory failure Code(s): J96.20 - ACUTE AND CHR RESP FAILURE, UNSP W HYPOXIA OR HYPERCAPNIA Status: Acute (2) Chronic combined systolic and diastolic CHF (congestive heart failure) Code(s): I50.42 - CHRONIC COMBINED SYSTOLIC AND DIASTOLIC HRT FAIL Status: Acute (3) NSTEMI (non-ST elevated myocardial infarction) Code(s): I21.4 - NON-ST ELEVATION (NSTEMI) MYOCARDIAL INFARCTION Status: Acute (4) Pneumonia Code(s): J18.9 - PNEUMONIA, UNSPECIFIED ORGANISM Status: Acute (5) COPD exacerbation Code(s): J44.1 - CHRONIC OBSTRUCTIVE PULMONARY DISEASE W (ACUTE) EXACERBATION Status: Acute (6) Hyponatremia Code(s): E87.1 - HYPO-OSMOLALITY AND HYPONATREMIA Status: Acute - Plan * Acute on chronic respiratory failure from Pneumonia, and COPD exacerbation- improving * Severe Deconditioning- continue PT/OT * Will check an ALFREDA, but I have explained to patient the result may be effected by recent steroids * If [facility] is not able to e arranged, then she will be discharged in the care of friends.
--- NOTE | 2017-09-23 12:36 | PDOC.CTH ---
<Farida Simental - Last Filed: 09/23/17 12:37> Cardiology Progress Note - Subjective The pt seen and examined. No overnight events. Still having ROMANO with minimal movement. - Objective Vital Signs Temp Pulse Resp BP BP Pulse Ox 09/23/17 07:58 98 09/23/17 07:57 87 20 100 09/23/17 07:35 98.6 F 102 H 18 112/75 100 09/23/17 04:46 97.8 F 86 18 103/67 99 09/23/17 04:10 98 Admit Weight 109 lb 0.044 oz Weight 107 lb 3.2 oz 09/22/17 09/23/17 09/24/17 06:59 06:59 06:59 Intake Total 3120 3420 Balance 3120 3420 - Physical Examination General/Neuro: alert & oriented x3 Neck: no JVD present Lungs: CTA Heart: RRR Abdomen: soft Extremities: other: (No edema) - Telemetry Telemetry Rhythm: ST 110s - Labs Result Diagrams: 09/21/17 19:51 09/21/17 19:51 Troponin/CKMB CK-MB (CK-2) 16.7 ng/mL (0-6.6) H* 09/18/17 14:39 Troponin I 3.226 ng/mL (< 0.028) H* 09/19/17 03:04 - Assessment/Plan 1. NSTEMI - Echo on 09/19/17 showed EF 30-35%, grade I diastolic dysfunction, akinetic in septum and [place], trace MR, and mild MR. The pt is not a good candidate for Cardiac cath due to unable to lay flat. Not on any anticoagulation due to hx of Hemoptysis. on ASA. Not on BBlocker due to hx of COPD. 2. Resp. failure 2ndary to PNA and COPD exacerbation - stable with RA at this moment; managed by voice professor 3. Chronic combined HF - Echo on 09/19/17 showed EF 30-35% and grade I diastolic dysfunction. Condition is stable; cont. monitor 4. Hemoptysis - no episodes since this admission 5. Hyponatremia - slightly improving. Cont. monitor 6. Ex-smoker, quit on 09/18/17 - smoking cessation education given to the pt MAR reviewed * The pt is waiting for [facility]. If no, she will be discharged to home. Review of Systems - Review of Systems Constitutional: reports: weakness EENTM: reports: no symptoms reported Respiratory: reports: see HPI Cardiac (ROS): reports: no symptoms reported ABD/GI: reports: no symptoms reported : reports: no symptoms reported Musculoskeletal: reports: see HPI <Diomedes Wilcox Sandro - Last Filed: 09/23/17 16:20> Cardiology Progress Note - Objective Vital Signs Temp Pulse Resp BP BP Pulse Ox 09/23/17 15:25 98.0 F 104 H 22 H 119/78 97 09/23/17 13:51 88 18 99 09/23/17 11:50 98.1 F 106 H 22 H 124/81 94 L 09/23/17 07:58 98 09/23/17 07:57 87 20 100 09/23/17 07:35 98.6 F 102 H 18 112/75 100 09/23/17 04:46 97.8 F 86 18 103/67 99 Admit Weight 109 lb 0.044 oz Weight 107 lb 3.2 oz 09/22/17 09/23/17 09/24/17 06:59 06:59 06:59 Intake Total 3120 3420 Balance 3120 3420 - Labs Result Diagrams: 09/21/17 19:51 09/21/17 19:51 Troponin/CKMB CK-MB (CK-2) 16.7 ng/mL (0-6.6) H* 09/18/17 14:39 Troponin I 3.226 ng/mL (< 0.028) H* 09/19/17 03:04 - Assessment/Plan Pt. seen and eval. by me. I agree with the A/P by the SUPERVISOR CLAM BED. From a cardiac standpoint she is stable. I will sign off. if any further cardiac issues then I will be happy to revisit.
--- NOTE | 2017-09-23 18:02 | PDOC.EVN ---
Event Note - Event Note Event Note: The patient is not on a beta-naa due to severe COPD, which has been documented by Pulmonary Function tests prior to this admission.
[2017-09-23 19:51] LABS: Hemoglobin 13.7 g/dL (12.0-16.0); Platelet Count 363 thou/uL (130-400)
[2017-09-23 20:11] LABS: Calc. Creatinine Clearance 74 mL/min (70-130); Estimated GFR-MDRD Greater than 90
[2017-09-24] MEDS: HYDROcodone/Acetaminophen 7.5/325 mg Tablet PO PRN ×4 (01:02→23:39)
[2017-09-24] MEDS: Lorazepam 2 MG/ML VIAL SLOW IVP PRN (03:37)
[2017-09-24] MEDS: traMADol HCl 50 MG TAB PO PRN ×2 (06:38→14:08)
[2017-09-24] MEDS: Mometasone/Formoterol 120 PUFF INHALER INH SCH ×2 (06:47→19:46)
--- NOTE | 2017-09-24 08:57 | PRG ---
DATE OF SERVICE: 09/24/2017 SUBJECTIVE: The patient is complaining that she does not want to go home. She says the breathing tr eatments are making her anxious. PHYSICAL EXAMINATION: VITAL SIGNS: Temperature 97.7, pulse 120, respirations 25, O2 saturation 96% on 2 liters. HEENT: Unremarkable. NECK: No JVD. CARDIAC: S1 and S2 regular. ABDOMEN: Soft. EXTREMITIES: No edema. ASSESSMENT: 1. Chronic obstructive pulmonary disease exacerbation. 2. Tobacco abuse. PLAN: I do not really see the reason that the patient could not go home other than her psychiatric i ssues. She appears to be anxious. I think there is also a component of the malingering. She is thr eatening to call the ambulance as soon as she gets home because she does not feel like she is able to carry on activities that she needs to make it at home.
[2017-09-24 08:58] VITALS: BMI 19.4
[2017-09-24] MEDS: Aspirin 325 MG TAB PO SCH (09:24)
[2017-09-24] MEDS: predniSONE 20 MG TAB PO SCH ×2 (09:24→17:47)
[2017-09-24] MEDS: Docusate 100 MG CAP PO SCH ×2 (09:24→20:49)
[2017-09-24] MEDS: Famotidine 20 MG TAB PO SCH ×2 (09:25→20:49)
[2017-09-24] MEDS: guaiFENesin/DM ER PO SCH ×2 (09:26→20:49)
--- NOTE | 2017-09-24 10:07 | PDOC.PN ---
- Subjective Encounter Start Date: 09/24/17 Encounter Start Time: 10:05 -: anxious, afraid to be discharged - Objective Resuscitation Status: Resuscitation Status FULL:Full Resuscitation MAR Reviewed: Yes Vital Signs & Weight: Vital Signs (12 hours) Temp Pulse Resp BP BP Pulse Ox 09/24/17 07:23 97.7 F 120 H 25 H 96 09/24/17 07:10 120 H 25 H 158/92 H 97 09/24/17 06:48 90 16 09/24/17 04:12 96 09/24/17 04:00 97.7 F 84 18 107/75 95 09/24/17 00:23 84 16 97 Weight Admit Weight 109 lb 0.044 oz Weight 127 lb 12.8 oz I&O: 09/23/17 09/24/17 09/25/17 06:59 06:59 06:59 Intake Total 3420 1800 Balance 3420 1800 Result Diagrams: 09/23/17 19:43 09/23/17 19:43 Phys Exam - Physical Examination Neck: no JVD Respiratory: clear to auscultation bilateral Cardiovascular: RRR, no significant murmur Gastrointestinal: soft, positive bowel sounds Musculoskeletal: no edema Dx/Plan (1) Acute and chronic respiratory failure Code(s): J96.20 - ACUTE AND CHR RESP FAILURE, UNSP W HYPOXIA OR HYPERCAPNIA Status: Acute Qualifiers: Respiratory failure complication: unspecified whether with hypoxia or hypercapnia Qualified Code(s): J96.20 - Acute and chronic respiratory failure , unspecified whether with hypoxia or hypercapnia (2) Cough with hemoptysis Code(s): R04.2 - HEMOPTYSIS Status: Acute (3) Hemoptysis Code(s): R04.2 - HEMOPTYSIS Status: Acute (4) NSTEMI (non-ST elevated myocardial infarction) Code(s): I21.4 - NON-ST ELEVATION (NSTEMI) MYOCARDIAL INFARCTION Status: Acute (5) Pneumonia Code(s): J18.9 - PNEUMONIA, UNSPECIFIED ORGANISM Status: Acute Qualifiers: Pneumonia type: due to unspecified organism Laterality: left Lung location: lower lobe of lung Qualified Code(s): J18.1 - Lobar pneumonia, unspecified organism (6) COPD (chronic obstructive pulmonary disease) Status: Chronic Qualifiers: Emphysema type: unspecified (7) Tobacco abuse Code(s): Z72.0 - TOBACCO USE Status: Chronic - Plan cont po steroids, nebs, antibx -: discuss withpulmonology * .
[2017-09-24] MEDS: Sodium Chloride 0.9% 1,000 ML IV SCH (11:32)
--- NOTE | 2017-09-24 14:37 | PDOC.EVN ---
Event Note - Event Note Event Note: have discussed with Dr Donis. will start on b-naa for NSTEMI and INSTRUCTIONAL SUPPORT SPECIALIST
[2017-09-24] MEDS: Metoprolol Tartrate 25 MG TAB PO SCH (20:49)
[2017-09-25] MEDS: Mometasone/Formoterol 120 PUFF INHALER INH SCH ×2 (07:10→19:03)
[2017-09-25] MEDS ORDERED: predniSONE 20 MG TAB PO SCH ×2 (08:30→08:45)
--- NOTE | 2017-09-25 08:39 | PRG ---
DATE OF SERVICE: 09/25/2017 Ms. Maguire says she is too weak to get up and do anything and does not want to go home. PHYSICAL EXAMINATION: VITAL SIGNS: Temperature is 98.2, pulse 76, respiratory is 20, O2 sat 92% on 2 liters, blood pressur e 104/69. HEENT: Unremarkable. NECK: No JVD. LUNGS: Clear with distant breath sounds. CARDIAC: S1 and S2 regular. ABDOMEN: Soft. EXTREMITIES: No edema. ASSESSMENT: 1. Chronic obstructive pulmonary disease with exacerbation. 2. Severe deconditioning. RECOMMENDATIONS: I will taper her steroids. She needs to get up and participate in physical therapy . I told her that there was no medicine that is going to fix her weakness. I do think some of her b ehavior is malingering in nature.
[2017-09-25] MEDS: Famotidine 20 MG TAB PO SCH ×2 (08:54→20:59)
[2017-09-25] MEDS: Metoprolol Tartrate 25 MG TAB PO SCH ×2 (08:55→21:00)
[2017-09-25] MEDS: guaiFENesin/DM ER PO SCH ×2 (08:55→20:59)
[2017-09-25] MEDS: Docusate 100 MG CAP PO SCH ×2 (08:56→20:59)
[2017-09-25] MEDS: Aspirin 325 MG TAB PO SCH (08:56)
--- NOTE | 2017-09-25 09:16 | PDOC.PN ---
- Subjective Encounter Start Date: 09/25/17 Encounter Start Time: 09:14 Subjective: usual complaints- not able to take care of self - Objective Resuscitation Status: Resuscitation Status FULL:Full Resuscitation MAR Reviewed: Yes Vital Signs & Weight: Vital Signs (12 hours) Temp Pulse Resp BP Pulse Ox 09/25/17 07:12 90 14 09/25/17 05:15 98.2 F 76 20 104/69 99 09/25/17 04:00 98.4 F 61 20 134/73 93 L 09/25/17 00:30 87 18 95 Weight Admit Weight 109 lb 0.044 oz Weight 126 lb I&O: 09/24/17 09/25/17 09/26/17 06:59 06:59 06:59 Intake Total 1800 1380 Balance 1800 1380 Result Diagrams: 09/23/17 19:43 09/23/17 19:43 Phys Exam - Physical Examination Neck: no JVD Respiratory: clear to auscultation bilateral Cardiovascular: RRR, no significant murmur Gastrointestinal: soft, non-tender, positive bowel sounds Musculoskeletal: no edema Dx/Plan (1) Acute and chronic respiratory failure Code(s): J96.20 - ACUTE AND CHR RESP FAILURE, UNSP W HYPOXIA OR HYPERCAPNIA Status: Acute Qualifiers: Respiratory failure complication: unspecified whether with hypoxia or hypercapnia Qualified Code(s): J96.20 - Acute and chronic respiratory failure , unspecified whether with hypoxia or hypercapnia (2) Cough with hemoptysis Code(s): R04.2 - HEMOPTYSIS Status: Resolved (3) Hemoptysis Code(s): R04.2 - HEMOPTYSIS Status: Resolved (4) NSTEMI (non-ST elevated myocardial infarction) Code(s): I21.4 - NON-ST ELEVATION (NSTEMI) MYOCARDIAL INFARCTION Status: Acute (5) Pneumonia Code(s): J18.9 - PNEUMONIA, UNSPECIFIED ORGANISM Status: Acute Qualifiers: Pneumonia type: due to unspecified organism Laterality: left Lung location: lower lobe of lung Qualified Code(s): J18.1 - Lobar pneumonia, unspecified organism (6) COPD (chronic obstructive pulmonary disease) Status: Chronic Qualifiers: Emphysema type: unspecified (7) Tobacco abuse Code(s): Z72.0 - TOBACCO USE Status: Chronic - Plan pulse normalized on b-naa -: lungs clear , steroids being tapered, cont nebs antibx, discussed with -: pulmonology -: DC in am if lungs clear, VS stable * .
[2017-09-25] MEDS: predniSONE 20 MG TAB PO SCH ×2 (10:52→16:15)
[2017-09-25 11:49] LABS: ANA Symphony (Qualitative) Negative (Negative); dsDNA IgG Antibody 1.2 IU/mL (<10 Negative)
[2017-09-25] MEDS: HYDROcodone/Acetaminophen 7.5/325 mg Tablet PO PRN ×3 (12:05→21:00)
[2017-09-25 20:19] LABS: Hemoglobin 13.6 g/dL (12.0-16.0); Platelet Count 322 thou/uL (130-400)
[2017-09-25 20:32] LABS: Calc. Creatinine Clearance 81 mL/min (70-130); Estimated GFR-MDRD Greater than 90
[2017-09-26] MEDS: HYDROcodone/Acetaminophen 7.5/325 mg Tablet PO PRN ×3 (02:21→14:47)
[2017-09-26] MEDS: guaiFENesin/DM ER PO SCH (08:12)
[2017-09-26] MEDS: Metoprolol Tartrate 25 MG TAB PO SCH (08:12)
[2017-09-26] MEDS: predniSONE 20 MG TAB PO SCH ×2 (08:12→16:05)
[2017-09-26] MEDS: Docusate 100 MG CAP PO SCH (08:12)
[2017-09-26] MEDS: Aspirin 325 MG TAB PO SCH (08:12)
[2017-09-26] MEDS: Famotidine 20 MG TAB PO SCH (08:12)
[2017-09-26] MEDS: Mometasone/Formoterol 120 PUFF INHALER INH SCH (08:27)
[2017-09-26] MEDS ORDERED: Metoprolol Tartrate 25 MG TAB PO SCH (09:00)
--- NOTE | 2017-09-26 09:35 | PDOC.PN ---
- Subjective Encounter Start Date: 09/26/17 Encounter Start Time: 09:34 Ms. Maguire was seen in follow-up. She says that she feels tired a few hours after taking Metoprolol. She admits she is breathing better. - Objective Resuscitation Status: Resuscitation Status FULL:Full Resuscitation MAR Reviewed: Yes Vital Signs & Weight: Vital Signs (12 hours) Temp Pulse Resp BP Pulse Ox 09/26/17 08:27 100 09/26/17 08:26 70 16 100 09/26/17 08:10 98.2 F 73 22 H 113/67 98 09/26/17 04:00 97.8 F 79 20 113/72 98 09/26/17 02:27 69 18 99 Weight Admit Weight 109 lb 0.044 oz Weight 123 lb 3.2 oz I&O: 09/25/17 09/26/17 09/27/17 06:59 06:59 06:59 Intake Total 1380 240 Balance 1380 240 Result Diagrams: 09/25/17 20:00 09/25/17 20:00 Phys Exam - Physical Examination HEENT: PERRLA Respiratory: no wheezing, no rales Cardiovascular: RRR, no significant murmur, no rub Gastrointestinal: soft, non-tender, no distention, positive bowel sounds Musculoskeletal: no edema Dx/Plan (1) Acute and chronic respiratory failure Code(s): J96.20 - ACUTE AND CHR RESP FAILURE, UNSP W HYPOXIA OR HYPERCAPNIA Status: Acute Qualifiers: Respiratory failure complication: unspecified whether with hypoxia or hypercapnia Qualified Code(s): J96.20 - Acute and chronic respiratory failure , unspecified whether with hypoxia or hypercapnia (2) Chronic combined systolic and diastolic CHF (congestive heart failure) Code(s): I50.42 - CHRONIC COMBINED SYSTOLIC AND DIASTOLIC HRT FAIL Status: Acute (3) NSTEMI (non-ST elevated myocardial infarction) Code(s): I21.4 - NON-ST ELEVATION (NSTEMI) MYOCARDIAL INFARCTION Status: Acute (4) Pneumonia Code(s): J18.9 - PNEUMONIA, UNSPECIFIED ORGANISM Status: Acute Qualifiers: Pneumonia type: due to unspecified organism Laterality: left Lung location: lower lobe of lung Qualified Code(s): J18.1 - Lobar pneumonia, unspecified organism (5) COPD exacerbation Code(s): J44.1 - CHRONIC OBSTRUCTIVE PULMONARY DISEASE W (ACUTE) EXACERBATION Status: Acute (6) Hyponatremia Code(s): E87.1 - HYPO-OSMOLALITY AND HYPONATREMIA Status: Acute - Plan * Acute respiratory failure- improved * Pneumonia- resolving * Acute on chronic systolic heart failure- compensated * Will cut back her dose of Metoprolol to 12.5 due to COPD, and feeling weak * Stable for discharge home..
[2017-09-26 16:31] VITALS: BP 123/75; TEMP 98.1
--- NOTE | 2017-09-26 17:14 | DIS ---
DATE OF ADMISSION: 09/18/2017 DATE OF DISCHARGE: 09/26/2017 PRIMARY CARE PHYSICIAN: Alex Whitaker M.D. DISCHARGE DISPOSITION: Home. PRIMARY DISCHARGE DIAGNOSES: 1. Acute on chronic respiratory failure secondary to community-acquired pneumonia. 2. Acute on chronic respiratory failure due to chronic obstructive pulmonary disease exacerbation. 3. Acute on chronic systolic heart failure. 4. Coronary artery disease. 5. Tobacco abuse. 6. Chronic low back pain. 7. Restless leg syndrome. DISCHARGE MEDICATIONS: Prednisone 10 mg twice a day for about 3 days and then back down to 10 mg leidy ly, which was her home dose to continue to taper as per her primary doctor, metoprolol 12.5 mg twice a day was added, lisinopril 2.5 mg daily, tramadol 50 mg q.i.d. as needed, Ventolin inhaler 2 puffs q .6 hours as needed, Spiriva 18 mcg daily, Senokot p.r.n., Skelaxin 200 mg q.i.d., ipratropium bromid e nebs q.4 hours as needed, Mucinex 600 mg q.i.d., Symbicort 160/4.5 one puff twice a day, and Dulcol ax 10 mg per rectum daily. PROCEDURES DONE DURING ADMISSION: The patient had a CT angiogram of the chest, which there was no ev idence of any acute pulmonary embolism. There was severe emphysematous changes and extensive new clu ster of nodular densities in the left lower lobe suggestive of an atypical infectious process. The p atient also had an echocardiogram in which it revealed an ejection fraction estimated at 30%-35%, the anterior wall septum and apex were akinetic. There was E to A flow reversal suggesting diastolic dy sfunction. CODE STATUS: FULL CODE. ALLERGIES: EPINEPHRINE, ERYTHROMYCIN, KETAMINE AND DECONGESTANTS. HOSPITAL COURSE: Ms. Maguire is a pleasant 62-year-old female that came to the hospital complaining of severe shortness of breath as well as hemoptysis. She was found to have an atypical pneumonia. She was placed on IV antibiotics for the treatment of this. 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 She also had an eleva liane troponin during her hospital stay and on admission and it is felt that she had an NSTEMI type 2 d ue to demand ischemia. Cardiology was consulted for the treatment of this. An echocardiogram was or dered and it was found that she had also a systolic as well as diastolic dysfunction as well. Unfort unately, due to the hemoptysis, she was not able to be placed on full anticoagulation, but eventually she was able to be placed on aspirin and a beta-naa as well as lisinopril. She had a prolonged hospital stay likely due to severe deconditioning due to her severe COPD as well as heart failure. I deally, we would have transferred her to a senior care unit, but she is uninsured and unfunded an d unfortunately we were unable to accomplish this. She was kept in the hospital additional couple of days to help with strengthening and then was discharged home. She is at high risk for readmission d ue to her severe COPD and CHF and coronary artery disease.
--- NOTE | 2017-10-02 11:29 | PQF ---
MIKE WHARTON TONI MD [phone] [facility]291 [id number] CLINICAL DOCUMENTATION CLARIFICATION FORM: POST DISCHARGE Please exercise your independent, professional judgment in responding to the clarification form. Clinical indicators are provided on the bottom of this form for your review. Thank you. Please check appropriate box(s) to clarify if the following diagnosis has been ruled in or ruled out: Sepsis [ ] Sepsis ruled in diagnosis [ ] Continue to treat [ ] Resolved [ ] Sepsis ruled out diagnosis [ ] Cannot rule out diagnosis [ ] Other diagnosis [ ] Unable to determine In addition, please specify: Present on Admission (POA): [ ] Yes [ ] No [ ] Unable to determine H&P: "Admitted with severe pneumonia, with sepsis as well as evidenced by the elevated white blood cell count and lactic acid level and elevated troponin. Likely has a NSTEMI type 2 related to the severe pneumonia and sepsis.." DC SUMMARY; 1. Acute on chronic respiratory failure secondary to community- acquired pneumonia. 2. Acute on chronic respiratory failure due to chronic obstructive pulmonary disease exacerbation. 3. Acute on chronic systolic heart failure. "elevated troponin on admission felt to be NSTEMI type 2 due to demand ischemia "..."prolonged hospital stay likely due to severe deconditioning due to her severe COPD as well as heart failure." PN CARDIOLOGY; "NSTEMI, likely demand ischemia from pneumonia" PN 09/21 "COPD exacerbation due to Pneumonia slowly improving, she has severe deconditioning; Continue Duonebs and IV Levaquin". "NSTEMI no anticoagulation second to hemoptysis". CLINICAL INDICATORS - SIGNS / SYMPTOMS / LABS WBC 12.9 Lactic acid 2.4 Elevated troponin 2.673 RISK FACTORS Acute respiratory failure Pneumonia NSTEMI type 2 COPD exacerbation snf steroids Smoker TREATMENTS IV Levaquin Duonebs IV steroids ASA (This form is maintained as a part of the permanent medical record) 2014 [employer]. All Rights Reserved KAREN [email or web address] [phone] JOHN PAUL
== END 2017-09-26 17:03 | disposition home or self-care (01) | DRG 193 ==
LOC: ERS 14:02 → 2NO 18:10
PROVIDERS: ADMIT Internal Medicine; ATTEND Internal Medicine
DX: I50.43 Acute on chronic combined systolic (congestive) and diastolic (congestive) heart failure; E87.1 Hypo-osmolality and hyponatremia; J96.20 Acute and chronic respiratory failure, unspecified whether with hypoxia or hypercapnia; Z68.1 Body mass index [BMI] 19.9 or less, adult; M81.0 Age-related osteoporosis without current pathological fracture; F17.210 Nicotine dependence, cigarettes, uncomplicated; R04.2 Hemoptysis; G25.81 Restless legs syndrome; J44.0 Chronic obstructive pulmonary disease with (acute) lower respiratory infection; I21.A1 Myocardial infarction type 2; R64 Cachexia; M54.5 Low back pain; I25.10 Atherosclerotic heart disease of native coronary artery without angina pectoris; J44.1 Chronic obstructive pulmonary disease with (acute) exacerbation; Z51.5 Encounter for palliative care; J18.9 Pneumonia, unspecified organism
CPT/HCPCS: 36415; 71045; 71275; 80048; 80053; 80061; 82553; 82565; 82805; 83605; 83930; 83935; 84300; 84484; 85014; 85018; 85025; 85049; 85379; 86038; 86225; 87040; 93005; 93306; 94640; 94664; 94760; 96365; 96375; A4216; G8978-GP-CK; G8979-GP-CI; G8987-GO-CJ; G8988-GO-CH; J1650; J1956; J2060; J2270; J2920; J3475; J7506; J7611; J7620

== ENCOUNTER 2018-02-04 13:04 | Emergency (ER) | payer SELFPAY ==
[2018-02-04 13:47] LABS: #Basophils 0.1 thou/uL (0.0-0.2); #Lymphocytes 0.2 thou/uL (1.20-3.40); #Monocytes 0.8 thou/uL (0.11-0.59); #Neutrophils 8.9 thou/uL (1.40-6.50); %Eosinophils 0.2 % (0.0-10.0); %Lymphocytes 2.2 % (21.0-51.0); %Monocytes 7.6 % (0.0-10.0); %Neutrophils 89.1 % (42.0-75.0); Hemoglobin 12.9 g/dL (12.0-16.0); Mean Corpuscular HGB CONC 33.5 g/dL (32.0-36.0); Mean Corpuscular Hemoglobin 33.3 pg (27.0-31.0); Mean Corpuscular Volume 99.4 fL (78.0-98.0); Mean Platelet Volume 6.4 fL (7.4-10.4); Platelet Count 317 thou/uL (130-400); RBC Distribution Width 12.1 % (11.5-14.5); Red Blood Cell (RBC) Count 3.86 mill/uL (4.20-5.40)
--- NOTE | 2018-02-04 14:03 | RAD ---
FRONTAL VIEW CHEST: Date: 02/04/18 COMPARISON: 09/18/17. INDICATION: Dyspnea. FINDINGS: Lungs remain hyperinflated. Bibasilar densities are present, including pleural based density, as well as adjacent parenchymal interstitial opacification. Cardiac silhouette is stable. Biapical pleural t hickening/irregularity is again seen. Chest otherwise similar. IMPRESSION: 1. COPD. 2. Bibasilar densities which may be related to pleural fluid with adjacent atelectasis and/or pneumo da. Recommend continued imaging follow-up. POS: SUKH
[2018-02-04 14:13] LABS: ALT (SGPT) 14 U/L (8-55); AST (SGOT) 19 U/L (5-34); Albumin 3.9 g/dL (3.4-4.8); Alkaline Phosphatase 91 U/L (40-150); Anion Gap 18 mmol/L (10-20); BUN (Urea Nitrogen) 14 mg/dL (9.8-20.1); Bilirubin, Total 0.6 mg/dL (0.2-1.2); Calc. Creatinine Clearance 0 mL/min (70-130); Calcium 8.8 mg/dL (7.8-10.44); Carbon Dioxide 19 mmol/L (23-31); Chloride 98 mmol/L (98-107); Estimated GFR-MDRD Greater than 90; Globulin 2.7 g/dL (2.4-3.5); Glucose 126 mg/dL (80-115); Potassium 3.7 mmol/L (3.5-5.1); Protein, Total 6.6 g/dL (6.0-8.3); Sodium 131 mmol/L (136-145)
[2018-02-04] MEDS ORDERED: Morphine 4 MG/ML VIAL ONE (14:55)
--- NOTE | 2018-02-04 16:16 | CT ---
CT ANGIOGRAM OF CHEST: Date: 02/04/18 COMPARISON: 09/18/17. HISTORY: Shortness of breath. TECHNIQUE: CT angiogram of the chest is performed in the axial plane. Three-dimensional reformatted images are s ubmitted for interpretation. FINDINGS: There is stable, extensive emphysematous changes throughout the lung parenchyma with areas of scarrin g predominantly in both upper lobes. Stable cavitation in the right upper lobe. Stable bronchiectasis in the right upper lobe. Improved aeration of the left lower lobe. Residual opacities do remain. Int erval opacification of the right lower lobe. No pleural effusion or pneumothorax. No mediastinal mass, lymphadenopathy, or hematoma. Heart size is within normal limits. No pericardial effusion. Visualized aorta is unchanged. Upper solid organs are unremarkable. Left parapelvic cyst is again noted. Adequate contrast opacification of the pulmonary arterial system to the level of the segmental arteri es. No filling defect to suggest thromboembolism. Extensive bone demineralization. Redemonstration of multifocal compression deformities throughout the spine. IMPRESSION: 1. Stable emphysematous changes and stable changes of lung parenchyma with exception of new opacific ation of the right lower lobe, which may represent aspiration/pneumonia. 2. No evidence of pulmonary arterial embolism to the level of the segmental arteries. 3. Stable appearance of the vertebra with evidence of multifocal compression fractures. POS: SUKH
== END 2018-02-04 18:37 | disposition home or self-care (01) ==
LOC: ERS 13:04
DX: J18.9 Pneumonia, unspecified organism (principal); J44.9 Chronic obstructive pulmonary disease, unspecified; F32.9 Major depressive disorder, single episode, unspecified; Z87.891 Personal history of nicotine dependence; Z79.899 Other long term (current) drug therapy
CPT/HCPCS: 36415; 71045; 71275; 80053; 85025; 85379; 94644; 94760; 96365; 96366; 96375; J1956; J2270; J7620

== ENCOUNTER 2018-02-16 20:15 | Inpatient (IN) | payer SELFPAY ==
[2018-02-16 20:54] LABS: #Lymphocytes 0.3 thou/uL (1.20-3.40); #Monocytes 0.2 thou/uL (0.11-0.59); #Neutrophils 5.8 thou/uL (1.40-6.50); %Basophils 0.4 % (0.0-1.0); %Eosinophils 0.1 % (0.0-10.0); %Lymphocytes 5.2 % (21.0-51.0); %Monocytes 2.6 % (0.0-10.0); %Neutrophils 91.8 % (42.0-75.0); Hemoglobin 12.6 g/dL (12.0-16.0); Mean Corpuscular HGB CONC 34.8 g/dL (32.0-36.0); Mean Corpuscular Volume 97.5 fL (78.0-98.0); Mean Platelet Volume 5.6 fL (7.4-10.4); Platelet Count 424 thou/uL (130-400); RBC Distribution Width 11.9 % (11.5-14.5); Red Blood Cell (RBC) Count 3.72 mill/uL (4.20-5.40); White Blood Cell (WBC) Count 6.3 thou/uL (4.8-10.8)
[2018-02-16 21:16] LABS: ALT (SGPT) 10 U/L (8-55); AST (SGOT) 12 U/L (5-34); Albumin 3.9 g/dL (3.4-4.8); Alkaline Phosphatase 105 U/L (40-150); Anion Gap 14 mmol/L (10-20); BUN (Urea Nitrogen) 7 mg/dL (9.8-20.1); Bilirubin, Total 0.4 mg/dL (0.2-1.2); Calc. Creatinine Clearance 0 mL/min (70-130); Carbon Dioxide 22 mmol/L (23-31); Chloride 97 mmol/L (98-107); Estimated GFR-MDRD Greater than 90; Globulin 2.2 g/dL (2.4-3.5); Glucose 103 mg/dL (80-115); Magnesium 1.8 mg/dL (1.6-2.6); Potassium 3.6 mmol/L (3.5-5.1); Protein, Total 6.1 g/dL (6.0-8.3); Sodium 129 mmol/L (136-145)
[2018-02-16 21:20] LABS: CKMB 2.2 ng/mL (0-6.6); Troponin I Less than 0.010 ng/mL (< 0.028)
[2018-02-16 23:35] VITALS: BMI 13.6
[2018-02-16 23:54] LABS: Troponin I Less than 0.010 ng/mL (< 0.028)
[2018-02-17] MEDS ORDERED: guaiFENesin 200 MG TAB PO PRN (00:25)
[2018-02-17] MEDS ORDERED: Bisacodyl 10 MG SUPP PR PRN (00:25)
[2018-02-17] MEDS: HYDROcodone/Acetaminophen 7.5/325 mg Tablet PO PRN ×5 (00:45→22:12)
[2018-02-17] MEDS ORDERED: Metoprolol Tartrate 25 MG TAB PO SCH (00:45)
[2018-02-17 03:03] LABS: Troponin I Less than 0.010 ng/mL (< 0.028)
--- NOTE | 2018-02-17 08:28 | HP ---
PRIMARY CARE PROVIDER: Dr. Alex Whitaker CHIEF COMPLAINT: [facility] acute on chronic respiratory failure and acute COPD exacerbation. HISTORY OF PRESENT ILLNESS: The patient was doing at her usual yesterday. She had worse shortness o f breath all day long, had no cough. She had no fever or chills. Had a brief sharp left lateral [address] st pain. She describes it as a new pain, but she states she has a bundle of pain all over, especiall y her upper and lower back. She has had no orthopnea, no paroxysmal nocturnal dyspnea. She reports she quit smoking in August of this year. DIAGNOSES: 1. Chronic obstructive pulmonary disease. 2. Congestive heart failure with a 30-35% ejection fraction. 3. Chronic pain syndrome. CURRENT MEDICATIONS: Symbicort 160/4.5 two puffs twice a day, ipratropium 1 puff daily, prednisone 2 .5 mg twice a day, Ventolin HFA 2 puffs q.4. p.r.n., hydrocodone 7.5 mg 2 tablets p.o. q.4 hours p.r .n., lisinopril 2.5 mg a day, metoprolol 25 mg twice a day, Spiriva HandiHaler 1 puff daily. ALLERGIES: No allergies; however, she states that EPINEPHRINE makes her feel paralyzed, DECONGESTANT S have an adverse reaction and she gets abdominal pain with ERYTHROMYCIN. PAST SURGICAL HISTORY: None. FAMILY HISTORY: No inherited diseases. There are a few scattered cases of various cancers in her keon; however, no heart disease, diabetes, hypertension, strokes, etc. SOCIAL HISTORY: Single. Drinks 2 beers a day. No tobacco since 08/2017, previously smoked up to 3 packs a day. CODE STATUS: Her daughter, Marcia Maguire is a power of civil litigation attorney. She is DNR. REVIEW OF SYSTEMS: GENERAL: No headaches, dizziness, fainting. EYES: She has blurred vision loss. No double vision, flashing lights. ENT: No ear pain or drainage. No nasal bleeding. No trouble swallowing. CARDIAC: No pressure, chest pain, orthopnea or paroxysmal nocturnal dyspnea. RESPIRATORY: Oxygen dependent, chronic dyspnea on exertion. Otherwise, see present illness. GASTROINTESTINAL: She states she feels bloated in her abdomen at times. Apparently, especially afte r drinking Ensure in the morning. No nausea or vomiting, no diarrhea. GENITOURINARY: No hematuria or dysuria. MUSCULOSKELETAL: No pain or swelling in arms or legs. NEUROLOGIC: No strokes, seizures or focal weakness. PSYCHIATRIC: Anxiety, depression, lifelong, no medications. SKIN: Bruises easily all over with the slightest bump. HEME/LYMPH: No tender or swollen lymph nodes in axilla, inguinal or cervical area. PHYSICAL EXAMINATION: GENERAL: The patient is , alert, oriented, and cooperative. VITAL SIGNS: Blood pressure 126/82, O2 sat is in the 90s on 2 liters per nasal cannula. Respiratory rate currently is 20, pulse 81. HEENT: Reveal pupils equal, round, reactive. Extraocular movements are intact. Sclerae white. Tym panic membranes clear. Nose clear. Oral mucous membranes are dry. Dental hygiene is good. NECK: No jugular venous distention, adenopathy or thyromegaly. CHEST: Hyperresonant to percussion with marked decreased breath sounds and scattered rhonchi. HEART: Regular rate and rhythm. Faint heart sounds, no appreciated murmurs. ABDOMEN: Soft, bowel sounds are normal. There is no hepatosplenomegaly, no mass, no rebound, no bru its. EXTREMITIES: Reveal no cyanosis, clubbing or edema. PULSES: Carotid, radial pulses intact, femoral pulses diminished. Pedal pulses are nonpalpable. SKIN: Warm and dry with ecchymoses from her lower extremities to her neck. Small superficial. HEME/LYMPH: No tender or swollen lymph nodes in axilla, inguinal or cervical area. NEUROLOGICAL: Cranial nerves II-XII are intact. Deep tendon reflexes are diffusely hyperreflexic. Moves all extremities. LABORATORY AND X-RAY FINDINGS: Chest x-ray reviewed by me shows severe COPD with a vertical heart, n o evidence of heart failure, flat diaphragms, no infiltrates. CBC is essentially normal except for mildly elevated platelet count at 424,000 and a mild neutrophili a. Comp metabolic profile shows normal liver function tests, normal cardiac enzymes x3 done for reaso ns I cannot ascertain. Sodium 129, potassium 3.6, chloride 97, CO2 22, BUN 7, creatinine 0.60. EKG reveals a normal sinus rhythm. No 12-lead is presented. I assume one was done at [facility] which she was [facility] from. ADMITTING DIAGNOSES: 1. Acute exacerbation of chronic obstructive pulmonary disease. 2. Acute on chronic hypoxic respiratory failure. 3. Cardiomyopathy, 30-35% on appropriate medications. 4. Chronic back pain. PLAN: The patient has been put on aggressive pulmonary care with DuoNebs q.4 hours. She is on high dose methylprednisone IV q.6h., her lisinopril and metoprolol for cardiomyopathy have been continued. She is on Levaquin. She has been placed on Dulera 2 puffs twice a day and Spiriva once daily. This unfortunate lady has severe O2 steroid dependent COPD. I suspect she will need 2-3 days of hosp italization for this episode.
[2018-02-17] MEDS ORDERED: methylPREDNISolone Sod Succ/PF 125 MG/2 ML VIAL IVP SCH (09:00)
[2018-02-17] MEDS ORDERED: Spiriva 18 MCG CAP (Box of 5 Caps) INH SCH (09:00)
[2018-02-17] MEDS: Metoprolol Tartrate 25 MG TAB PO SCH ×2 (09:12→21:08)
[2018-02-17] MEDS: Lisinopril 2.5 MG TAB PO SCH (09:12)
--- NOTE | 2018-02-17 10:31 | CON ---
DATE OF CONSULTATION: 02/17/2018 Mann Maguire is a 61-year-old female from [place], [place]. She sees Dr. Donis in the office. She states she was doing well until yesterday evening when she developed marked shortness of breath i n spite of using her nebulizer medicine multiple times. She presented to the ER in [place] and was transferred here with a diagnosis of chronic obstructive pulmonary disease exacerbation. There is no fever or chills. She has multiple additional problems. She has got severe kyphoscoliosis, which affects her breathing. She says unable to eat a large meal at a time. Most days, she can barely walk 30 feet without getting out of breath. No fever or chill s. She is a former smoker. She smoked a pack a day, though she quit smoking 10 years ago. She apparent ly has 2 beers a day alcohol consumption. PAST MEDICAL HISTORY: COPD, chronic pain, anxiety, depression, abnormal x-ray, lung nodule, stable f or a period of time. PAST SURGICAL HISTORY: None recently. She has had numerous admissions in the last 2 years. MEDICATIONS: Her list of medicine from home includes prednisone 2.5, Mucinex 200, Ventolin, Spiriva, metoprolol 25, lisinopril 2.5, hydrocodone, [place] 1-1/2 tablets, Symbicort 2 puffs twice a day. ALLERGIES: ERYTHROMYCIN, EPINEPHRINE, KETAMINE and TRAMADOL. REVIEW OF SYSTEMS: Ten point negative. PHYSICAL EXAMINATION: VITAL SIGNS: Sats are 98 on 2 liters, blood pressure 126/82, temperature 96, respiration 20. GENERAL: She appears to be in no distress. CHEST: Decreased breath sounds, no wheezing. CARDIAC: Normal S1, S2, no gallops. ABDOMEN: Soft. EXTREMITIES: No edema. LABORATORY DATA: White count 6000, H&H 12 and 36, platelet count normal. Electrolytes are normal. Her chest x-ray shows bilateral pleural thickening. Otherwise, no acute changes. IMPRESSION: 1. Chronic obstructive pulmonary disease exacerbation. 2. Bronchitis. 3. Anxiety. 4 Depression. 5. Kyphoscoliosis. PLAN: I agree with increasing steroids, neb treatments, supportive care. I will notify Dr. Donis. This is a consultation note, 70 minutes, 50% spent in direct patient care.
[2018-02-17] MEDS: Mometasone/Formoterol 120 PUFF INHALER INH SCH (19:21)
[2018-02-17] MEDS: Senokot 8.6 MG TAB PO SCH (21:08)
[2018-02-18] MEDS: HYDROcodone/Acetaminophen 7.5/325 mg Tablet PO PRN ×5 (02:48→21:00)
[2018-02-18] MEDS: Mometasone/Formoterol 120 PUFF INHALER INH SCH ×2 (06:36→18:26)
--- NOTE | 2018-02-18 08:37 | PRG ---
DATE OF SERVICE: 02/18/2018 SUBJECTIVE: The patient says she feels a little better today, but is having trouble coughing up muco id secretions. PHYSICAL EXAMINATION: VITAL SIGNS: Temperature 97.5, pulse 90, respirations 22, O2 sat 100%, blood pressure 107/69. HEENT: Unremarkable. NECK: Without adenopathy or JVD. LUNGS: A few crackles in the left base, right side clear. She has no wheezing. She has severe kyph oscoliosis. CARDIAC: S1 and S2 regular. ABDOMEN: Soft. EXTREMITIES: No edema. LABORATORY DATA: No new labs were done today. ASSESSMENT: Chronic obstructive pulmonary disease with exacerbation. PLAN: Continue antibiotics, nebulization treatments and IV steroids. I have told her to focus on us ing the acapella flutter valve at the bedside as it will help her clear secretions. She probably nee ds a day or 2 more in the hospital.
[2018-02-18] MEDS: Senokot 8.6 MG TAB PO SCH (09:36)
[2018-02-18] MEDS: Lisinopril 2.5 MG TAB PO SCH (09:36)
[2018-02-18] MEDS: Aspirin 325 mg Enteric Coated Tablet PO SCH (09:37)
[2018-02-18] MEDS: Metoprolol Tartrate 25 MG TAB PO SCH ×2 (09:37→21:02)
--- NOTE | 2018-02-18 13:04 | PDOC.PN ---
- Subjective Encounter Start Date: 02/18/18 Encounter Start Time: 13:02 Subjective: sob with any exertion - Objective Resuscitation Status: Resuscitation Status DNR:Do Not Resuscitate MAR Reviewed: Yes Vital Signs & Weight: Vital Signs (12 hours) Temp Pulse Resp BP Pulse Ox 02/18/18 11:46 97.7 F 72 14 106/71 98 02/18/18 10:57 91 16 97 02/18/18 09:36 90 02/18/18 07:22 97.5 F L 90 22 H 107/69 100 02/18/18 06:40 103/68 02/18/18 06:37 99 02/18/18 06:35 87 16 99 02/18/18 04:00 97.8 F 87 18 95/60 100 02/18/18 02:20 74 12 94 L Weight Admit Weight 89 lb 8 oz Weight 89 lb 8 oz I&O: 02/17/18 02/18/18 02/19/18 06:59 06:59 06:59 Intake Total 620 Balance 620 Result Diagrams: 02/16/18 20:46 02/16/18 20:46 Phys Exam - Physical Examination Neck: no JVD hyperresonant, distant BS, nonfocal exam Cardiovascular: RRR, no significant murmur Gastrointestinal: soft, positive bowel sounds Musculoskeletal: no edema Dx/Plan (1) Cardiomyopathy Code(s): I42.9 - CARDIOMYOPATHY, UNSPECIFIED Status: Chronic (2) Acute and chronic respiratory failure Code(s): J96.20 - ACUTE AND CHR RESP FAILURE, UNSP W HYPOXIA OR HYPERCAPNIA Status: Acute Qualifiers: Respiratory failure complication: unspecified whether with hypoxia or hypercapnia Qualified Code(s): J96.20 - Acute and chronic respiratory failure , unspecified whether with hypoxia or hypercapnia (3) COPD (chronic obstructive pulmonary disease) Status: Chronic Qualifiers: Emphysema type: unspecified (4) Tobacco abuse Code(s): Z72.0 - TOBACCO USE Status: Chronic - Plan cont iv steroids, nebs, dulera, O2, antibx -: severe copd O2 and steroid dependent * .
[2018-02-19] MEDS: HYDROcodone/Acetaminophen 7.5/325 mg Tablet PO PRN ×5 (03:02→20:30)
[2018-02-19] MEDS: Mometasone/Formoterol 120 PUFF INHALER INH SCH ×2 (07:36→18:19)
--- NOTE | 2018-02-19 08:25 | PRG ---
DATE OF SERVICE: 02/19/2018 She feels somewhat better, does not have as much cough or congestion. PHYSICAL EXAMINATION: VITAL SIGNS: Temperature is 97.8, pulse 75, respiration 16, O2 sat 93% on room air, blood pressure 1 10/73. HEENT: Unremarkable. NECK: No JVD. LUNGS: Distant, but clear breath sounds. CARDIAC: S1 and S2 regular. ABDOMEN: Soft, nontender. EXTREMITIES: No clubbing, cyanosis, or edema. ASSESSMENT: Chronic obstructive pulmonary disease with exacerbation. PLAN: The patient has been instructed to get up and walk around. I think she is probably suitable f or discharge home either this afternoon or tomorrow morning on a tapered dose of steroids, antibiotic s, and her usual inhaler and nebulization medication.
[2018-02-19] MEDS: Metoprolol Tartrate 25 MG TAB PO SCH ×2 (09:07→20:31)
[2018-02-19] MEDS: Aspirin 325 mg Enteric Coated Tablet PO SCH (09:07)
[2018-02-19] MEDS: Lisinopril 2.5 MG TAB PO SCH (09:07)
[2018-02-19] MEDS: Senokot 8.6 MG TAB PO SCH (09:10)
--- NOTE | 2018-02-19 13:26 | PDOC.PN ---
- Subjective Encounter Start Date: 02/19/18 Encounter Start Time: 13:24 Subjective: much less sob - Objective Resuscitation Status: Resuscitation Status DNR:Do Not Resuscitate MAR Reviewed: Yes Vital Signs & Weight: Vital Signs (12 hours) Temp Pulse Resp BP Pulse Ox 02/19/18 11:08 97.6 F 81 14 118/73 95 02/19/18 10:36 69 16 99 02/19/18 08:00 97.4 F L 69 16 02/19/18 07:37 93 L 02/19/18 07:34 97.4 F L 74 16 116/75 96 02/19/18 07:32 75 16 93 L 02/19/18 04:22 97.8 F 84 20 110/73 98 02/19/18 02:41 74 14 100 Weight Admit Weight 89 lb 8 oz Weight 89 lb 8 oz I&O: 02/18/18 02/19/18 02/20/18 06:59 06:59 06:59 Intake Total 620 600 Balance 620 600 Result Diagrams: 02/16/18 20:46 02/16/18 20:46 Phys Exam - Physical Examination Constitutional: NAD Neck: no JVD Respiratory: clear to auscultation bilateral hyperresonant, decreased BS Cardiovascular: RRR, no significant murmur Gastrointestinal: soft, positive bowel sounds Musculoskeletal: no edema Dx/Plan (1) Cardiomyopathy Code(s): I42.9 - CARDIOMYOPATHY, UNSPECIFIED Status: Chronic (2) Acute and chronic respiratory failure Code(s): J96.20 - ACUTE AND CHR RESP FAILURE, UNSP W HYPOXIA OR HYPERCAPNIA Status: Acute Qualifiers: Respiratory failure complication: unspecified whether with hypoxia or hypercapnia Qualified Code(s): J96.20 - Acute and chronic respiratory failure , unspecified whether with hypoxia or hypercapnia (3) COPD (chronic obstructive pulmonary disease) Status: Chronic Qualifiers: Emphysema type: unspecified (4) Tobacco abuse Code(s): Z72.0 - TOBACCO USE Status: Chronic - Plan much improved, DC tomorrow on posteroids, antibx, nebs, etc * .
[2018-02-20] MEDS: HYDROcodone/Acetaminophen 7.5/325 mg Tablet PO PRN ×4 (00:34→16:17)
[2018-02-20] MEDS: Mometasone/Formoterol 120 PUFF INHALER INH SCH (07:01)
--- NOTE | 2018-02-20 08:44 | PRG ---
DATE OF SERVICE: 02/20/2018. SUBJECTIVE: The patient had problems with constipation last night. Her breathing is okay. PHYSICAL EXAMINATION: VITAL SIGNS: Temperature 97.4, pulse 75, respiration 16, O2 sat 97%, blood pressure 120/73. HEENT: Unremarkable. NECK: No JVD. CHEST: Clear without wheezing. CARDIAC: S1 and S2 regular. ABDOMEN: Soft. EXTREMITIES: No edema. ASSESSMENT: Chronic obstructive pulmonary disease with exacerbation. PLAN: Although the patient would prefer to stay in the hospital because she likes it here, I think s he is medically stable for discharge from a respiratory standpoint. She needs to continue her nebuli zation and inhaler medications at home, steroids need to be tapered over a week or two and she needs to finish out 7 days of antibiotics. She needs to follow up with primary care.
--- NOTE | 2018-02-20 09:24 | DIS ---
TRANSFER OF CARE NOTE PRIMARY CARE PHYSICIAN: Dr. Alex Whitaker DATE OF ADMISSION: 02/16/2018 DATE OF DISCHARGE: 02/20/2018 FINAL DIAGNOSES: 1. Acute on chronic respiratory failure with hypoxia. 2. Chronic obstructive pulmonary disease exacerbation. 3. Cardiomyopathy. 4. Chronic back pain. DISCHARGE MEDICATIONS: Levaquin 500 mg p.o. daily for 4 more days, prednisone 40 mg a day until seen by Dr. Whitaker, Spiriva HandiHaler 1 puff daily, Ventolin HFA 2 puffs q.6 hours p.r.n., lisinopril 2 .5 mg a day, metoprolol 25 mg twice a day, Symbicort 160/4.5 two puffs b.i.d., DuoNeb 3 mL nebulizer q.6 hours. CODE STATUS: Do not resuscitate. DIET: Heart healthy. PENDING AT THE TIME OF DISCHARGE: Nothing. HOSPITAL COURSE: The patient admitted to the hospital through [facility] with acute r espiratory distress. She has a history of COPD. She quit smoking in August of this year. She was tr eated aggressively with DuoNeb, steroids and antibiotics. She was seen in consultation by Dr. Kayley horton or Dr. Guillermo Donis who has followed her since. No procedures were done. Her chest cleared rapidly . She is comfortable without O2. Her chest is hyperresonant. Breath sounds are distant with no foc al findings at this time. Her current O2 sat is in the mid to high 90s on room air, blood pressure 1 16/74. LABORATORY DATA: CBC was unremarkable on admission. Comp metabolic profile showed a sodium of 129, normal renal function, normal liver functions. Her cardiac enzymes were normal. Chest x-ray done in the [facility] revealed marked hyperinflation with no infiltrates or CHF. Paren thetically, the patient really wants to stay in the hospital. She states she feels more comfortably here. Both I and Dr. Donis have encouraged her that she cannot just stay in the hospital. She is in no distress. Follow up in [address] Whitaker.
[2018-02-20] MEDS: Aspirin 325 mg Enteric Coated Tablet PO SCH (09:26)
[2018-02-20] MEDS: Metoprolol Tartrate 25 MG TAB PO SCH (09:26)
[2018-02-20] MEDS: Lisinopril 2.5 MG TAB PO SCH (09:26)
[2018-02-20] MEDS: Senokot 8.6 MG TAB PO SCH (09:29)
[2018-02-20 16:24] VITALS: BP 112/74; TEMP 97.8
[2018-02-21] MEDS ORDERED: predniSONE 20 MG TAB PO SCH (08:00)
== END 2018-02-20 19:28 | disposition home or self-care (01) | DRG 189 ==
LOC: ERS 20:15 → 2NO 22:55 → SURG B 02-17 15:42
PROVIDERS: ADMIT Hospitalist; ATTEND Hospitalist
DX: J96.21 Acute and chronic respiratory failure with hypoxia (principal); J44.1 Chronic obstructive pulmonary disease with (acute) exacerbation; E87.1 Hypo-osmolality and hyponatremia; I42.9 Cardiomyopathy, unspecified; Z66 Do not resuscitate; M54.5 Low back pain; G89.29 Other chronic pain; Z87.891 Personal history of nicotine dependence; F41.9 Anxiety disorder, unspecified; F32.9 Major depressive disorder, single episode, unspecified; M41.9 Scoliosis, unspecified
CPT/HCPCS: 36415; 83735; 83880; 84484; 94640; 94760; J1956; J2920; J7620

== ENCOUNTER 2018-03-10 08:11 | Emergency (ER) | payer SELFPAY ==
[2018-03-10 08:51] LABS: Bilirubin Negative (Negative); Blood, Urine Trace (Negative); Clarity CLEAR (Clear); Glucose, Urine (Dipstick) Negative (Negative); Leukocyte Negative (Negative); Nitrite Negative (Negative); Protein, Urine (Dipstick) Negative (Neg-Trace); Specific Gravity, Urine 1.008 (1.002-1.036); Urobilinogen 0.2 mg/dL (0.2-1.0); pH, Urine 6.5 (5.0-9.0)
[2018-03-10 08:54] LABS: Bacteria/HPF None Seen HPF (None Seen); Hyaline Casts/LPF 0-3 HYALINE CAST LPF (0-3 Hyaline); RBC/HPF 0-3 HPF (0-3); Squamous Epithelial None Seen HPF (0-3); WBC/HPF None Seen HPF (0-3)
[2018-03-10] MEDS ORDERED: Fentanyl 100 MCG/2 ML VIAL ONE ×2 (09:06→10:12)
[2018-03-10 09:08] LABS: #Basophils 0.1 thou/uL (0.0-0.2); #Eosinphils 0.1 thou/uL (0.0-0.7); #Lymphocytes 1.1 thou/uL (1.20-3.40); #Monocytes 1.2 thou/uL (0.11-0.59); #Neutrophils 13.8 thou/uL (1.40-6.50); %Basophils 0.3 % (0.0-1.0); %Eosinophils 0.5 % (0.0-10.0); %Lymphocytes 6.9 % (21.0-51.0); %Monocytes 7.5 % (0.0-10.0); %Neutrophils 84.8 % (42.0-75.0); Hemoglobin 11.9 g/dL (12.0-16.0); Mean Corpuscular HGB CONC 32.8 g/dL (32.0-36.0); Mean Corpuscular Hemoglobin 31.8 pg (27.0-31.0); Platelet Count 331 thou/uL (130-400); RBC Distribution Width 11.9 % (11.5-14.5); Red Blood Cell (RBC) Count 3.75 mill/uL (4.20-5.40); White Blood Cell (WBC) Count 16.2 thou/uL (4.8-10.8)
[2018-03-10 09:38] LABS: ALT (SGPT) 22 U/L (8-55); AST (SGOT) 14 U/L (5-34); Albumin 3.7 g/dL (3.4-4.8); Alkaline Phosphatase 90 U/L (40-150); Anion Gap 11 mmol/L (10-20); BUN (Urea Nitrogen) 10 mg/dL (9.8-20.1); Bilirubin, Total 0.6 mg/dL (0.2-1.2); CK (CPK) 27 U/L (29-168); Calc. Creatinine Clearance 0 mL/min (70-130); Calcium 8.7 mg/dL (7.8-10.44); Carbon Dioxide 26 mmol/L (23-31); Chloride 94 mmol/L (98-107); Estimated GFR-MDRD Greater than 90; Globulin 1.9 g/dL (2.4-3.5); Glucose 80 mg/dL (80-115); Potassium 3.7 mmol/L (3.5-5.1); Protein, Total 5.6 g/dL (6.0-8.3); Sodium 127 mmol/L (136-145)
--- NOTE | 2018-03-10 10:06 | RAD ---
AP PELVIS: HISTORY: Fall. FINDINGS: Bones are osteopenic. No definite fracture or dislocation is seen. If there is high clinical suspicion for a fracture, further evaluation with a CT scan should be perfo rmed. POS: [facility]
--- NOTE | 2018-03-10 10:16 | RAD ---
LEFT ELBOW 4 VIEWS: Date: 03/10/18 HISTORY: Fall. Pain. FINDINGS: There is diffuse mild bone demineralization. Possible nondisplaced fracture involving the coronoid pr ocess. Evaluation of joint effusion is limited. IMPRESSION: Possible coronoid process fracture. Correlate clinically for point tenderness. POS: [facility]
[2018-03-10] MEDS ORDERED: Lorazepam 2 MG/ML VIAL ONE (12:38)
--- NOTE | 2018-03-10 13:05 | RAD ---
CHEST ONE VIEW: Comparison: 02-05-16 History: Dyspnea. Cough. FINDINGS: Stable configuration of the cardiac silhouette. Lungs continue to be hyperinflated with chronic anderson es. No consolidation. No significant pleural fluid. No pneumothorax. IMPRESSION: Chronic changes. Hyperinflation. POS: [facility]
--- NOTE | 2018-03-10 14:01 | RAD ---
LUMBAR SPINE 3 VIEWS: Date: 03/10/18 HISTORY: 63-year-old female with history of lumbar spine injury and back pain following a fall. COMPARISON: 12/22/16. FINDINGS: There is significant diffuse bone demineralization. There is vertical height loss of all of the lumba r vertebral bodies and partially visualized lower thoracic vertebral bodies. There does not appear to be a significant change from the prior study. IMPRESSION: Moderate to marked vertical height loss with compressive changes of all of the lumbar vertebral rosey s, little change from prior study. Depending upon clinical concern, follow-up CT scan or MRI study might give additional information in this regard. Because of patient potion, technique, and bone demineralization, this study is technical ly limited. POS: [facility]
[2018-03-10] MEDS ORDERED: HYDROcodone/Acetaminophen 10/325 mg Tablet ONE (14:28)
== END 2018-03-10 18:25 | disposition home or self-care (01) ==
LOC: ERS 08:11
DX: M47.816 Spondylosis without myelopathy or radiculopathy, lumbar region (principal); J44.9 Chronic obstructive pulmonary disease, unspecified; F41.9 Anxiety disorder, unspecified; Z87.891 Personal history of nicotine dependence; Z79.891 Long term (current) use of opiate analgesic; Z79.899 Other long term (current) drug therapy; W19.XXXA Unspecified fall, initial encounter
CPT/HCPCS: 36415; 51701; 71045; 72100; 72170; 80053; 81003; 81015; 82550; 83880; 85025; 94640; 96374; 96375; 96376; A4353; J2060; J3010; J7620

== ENCOUNTER 2018-03-12 13:33 | Observation (INO) | payer SELFPAY ==
[2018-03-12 16:00] VITALS: BMI 15.6
[2018-03-12] MEDS ORDERED: Ondansetron ODT 4 MG TAB PO PRN (16:10)
[2018-03-12] MEDS ORDERED: Acetaminophen 325 MG TAB PO PRN (16:10)
[2018-03-12] MEDS ORDERED: guaiFENesin 200 MG TAB PO PRN (16:30)
--- NOTE | 2018-03-12 16:49 | HP ---
PRIMARY CARE PROVIDER: Dr. Alex Whitaker. Referred from the [facility] to [facility], diagnosis of COPD exacerbatio n and respiratory distress. HISTORY OF PRESENT ILLNESS: The patient describes a fall 2 days ago, was seen in the emergency room. She wonders why they fail to admit her at that time. She states she had to use her nebulizer a lit tle more often, so she came to the emergency room. She stated she has had no cough, no fever, no chi lls. She has had some sneezing. She has just felt a little more shortness of breath. She states jerome ho is taking her neb up to every 3 hours. REVIEW OF SYSTEMS: GENERAL: Reveals no headaches, dizziness, or fainting. EYES: She has had blurred vision for months. No double vision, flashing lights. ENT: Sneezing. No nasal bleeding. No trouble swallowing, no ear pain or drainage. CARDIAC: No chest pain, orthopnea or paroxysmal nocturnal dyspnea. RESPIRATIONS: No significant cough. She has felt shortness of breath. She thinks she has wheezing. GASTROINTESTINAL: No nausea, vomiting, diarrhea or constipation. GENITOURINARY: No hematuria, dysuria or nocturia. MUSCULOSKELETAL: No current pain or swelling in her legs, although she does say she does swell in he r legs at times. NEUROLOGIC: No strokes, seizures, focal weakness. PSYCHIATRIC: She admits to significant anxiety, depression. SKIN: Easy bruising, no rash. HEME/LYMPH: No tender or swollen lymph nodes in axilla, inguinal, or cervical. PHYSICAL EXAMINATION: VITAL SIGNS: Initial vital signs at the other hospital and was 95/62, 74, respirations 24, pulse ox of 88. Her last one blood pressure 107/72, pulse 83, respirations 20, pulse ox of 2 liters. She com plained of 5-9/10 pain, especially in her back, she rates it as 10. She is chronically on [place] 04/02 25 for that. HEME/LYMPH: No tender or swollen lymph nodes. NEUROLOGICAL: As mentioned before. No complaints. She is alert, in no respiratory distress at this time. GENERAL: She is able to talk 2 minutes off of oxygen without becoming short of breath and her pulse ox did not drop below 96. HEENT: Pupils equal and round. Extraocular movements are intact. Sclerae white. Tympanic membrane s clear. Nose clear. Oral mucous membranes are wet. NECK: No jugular venous distention, adenopathy or thyromegaly. CHEST: Hyperresonant reasonably good breath sounds with no wheezing, coarse sounds, rales or rhonchi . HEART: Regular rate and rhythm. First and second heart sounds are clear. There are no appreciated murmurs or gallops. ABDOMEN: Soft, bowel sounds are normal. There is no hepatosplenomegaly, no mass, no rebound. EXTREMITIES: Reveal no cyanosis, clubbing or edema. PULSES: Carotid, radial, femoral, and dorsalis pedis pulses intact. The right dorsalis pedis is str onger than the left. SKIN: Warm and dry with ecchymoses about her arms. HEME/LYMPH: No tender or swollen lymph nodes in axilla, inguinal or cervical area. NEUROLOGICAL: Cranial nerves II-XII are intact. Deep tendon reflexes symmetric. Moves all extremit ies. LABORATORY AND X-RAY FINDINGS: Chest x-ray done in [facility] reveals severe hyperinflation with a maura tical heart and no infiltrates, cardiomegaly or CHF. Laboratory done in [facility], white count 11.0, hemoglobin 12.3, platelet count 313,000. Sodium 128, potassium 4.6, BUN 10, creatinine 0.59. BNP and Troponin done for some odd reason are normal. Liver function tests are normal. ADMITTING DIAGNOSES: 1. Severe steroid dependent chronic obstructive pulmonary disease, appears baseline at this state, h er exam is clear consistent approximately 2-3 weeks ago. Her O2 sat of a room air for 2 minute s, did not drop below 96. She was talking almost the whole time without any respiratory problems. 2. Anxiety/depression. I suspect this is a major component of this patient's current problem is anx iety over her severe lung damage, which prevent significant activity. 3. Hyponatremia, chronic, previous admissions, cardiomyopathy with ejection fraction of 30% to 35% and chronic pain syndrome with frequent use of hydrocodone 10. PLAN: Resume home medicines, monitor sats reexamine in the morning. If no deterogation, should be d ischarged home.
[2018-03-12] MEDS ORDERED: PROVENTIL INHALER 6.7 G (200 INHALATIONS) INH PRN (17:19)
[2018-03-12] MEDS ORDERED: Senokot 8.6 MG TAB PO PRN (17:30)
[2018-03-12] MEDS: HYDROcodone/Acetaminophen 7.5/325 mg Tablet PO PRN ×2 (17:58→22:01)
[2018-03-12] MEDS: methylPREDNISolone Sod Succ/PF 125 MG/2 ML VIAL IVP SCH ×2 (18:05→23:31)
[2018-03-12] MEDS: Mometasone/Formoterol 120 PUFF INHALER INH SCH (18:14)
[2018-03-12] MEDS: Ipratropium Bromide 2.5 ml Neb NEB SCH (18:16)
[2018-03-12] MEDS: Metoprolol Tartrate 25 MG TAB PO SCH (21:21)
[2018-03-13] MEDS: Ipratropium Bromide 2.5 ml Neb NEB SCH ×2 (01:00→07:38)
[2018-03-13] MEDS: HYDROcodone/Acetaminophen 7.5/325 mg Tablet PO PRN ×3 (02:48→10:53)
[2018-03-13 05:53] LABS: #Basophils 0.1 thou/uL (0.0-0.2); #Lymphocytes 0.1 thou/uL (1.20-3.40); #Monocytes 0.2 thou/uL (0.11-0.59); %Basophils 1.8 % (0.0-1.0); %Eosinophils 0.3 % (0.0-10.0); %Lymphocytes 1.9 % (21.0-51.0); %Monocytes 4.4 % (0.0-10.0); %Neutrophils 91.6 % (42.0-75.0); Hemoglobin 11.1 g/dL (12.0-16.0); Mean Corpuscular HGB CONC 34.9 g/dL (32.0-36.0); Mean Corpuscular Volume 97.6 fL (78.0-98.0); Mean Platelet Volume 6.4 fL (7.4-10.4); Platelet Count 288 thou/uL (130-400); RBC Distribution Width 11.9 % (11.5-14.5); Red Blood Cell (RBC) Count 3.25 mill/uL (4.20-5.40); White Blood Cell (WBC) Count 5.4 thou/uL (4.8-10.8)
[2018-03-13 06:14] LABS: Anion Gap 9 mmol/L (10-20); BUN (Urea Nitrogen) 11 mg/dL (9.8-20.1); Calc. Creatinine Clearance 69 mL/min (70-130); Calcium 8.3 mg/dL (7.8-10.44); Carbon Dioxide 25 mmol/L (23-31); Chloride 98 mmol/L (98-107); Estimated GFR-MDRD Greater than 90; Glucose 117 mg/dL (80-115); Potassium 4.1 mmol/L (3.5-5.1); Sodium 128 mmol/L (136-145)
[2018-03-13] MEDS: Mometasone/Formoterol 120 PUFF INHALER INH SCH (07:37)
--- NOTE | 2018-03-13 07:50 | DIS ---
DATE OF ADMISSION: 03/12/2018 DATE OF DISCHARGE: 03/13/2018 PRIMARY CARE PROVIDER: Dr. Alex Whitaker. DISCHARGE DISPOSITION: Home. FINAL DIAGNOSES: Stable chronic obstructive pulmonary disease, cardiomyopathy, chronic hyponatremia, tobacco abuse, and chronic pain syndrome. DISCHARGE MEDICATIONS: Same as home medicines, aspirin 81 mg a day, hydrocodone 7.5/325 two tablets q.4 hours p.r.n. pain, Ventolin HFA 2 puffs q.6 hours p.r.n., Symbicort 160/4.5 two puffs b.i.d., Spi debbie HandiHaler 18 mcg a day, DuoNeb q.4 hours p.r.n., metoprolol 25 mg a day, prednisone 40 mg a day , Mucinex 200 mg q.i.d. ALLERGIES: EPINEPHRINE, ERYTHROMYCIN, KETAMINE, TRAMADOL. HOSPITAL COURSE: The patient was brought to [facility] emergency room by ambulance. In the [facility] emergency room, she was recorded to have 89% O2 on room air. In our emergency room, I had her off o f O2 for 2 minutes, she talked for 2 minutes without needing to stop to breathe, O2 sat never dropped below 96, she was put in on observation basis. Her breath sounds are diminished, but clear. Her la boratory data showed CBC with white count 5.4, hemoglobin 11.1, platelet count 288,000. Sodium was 1 28. Basic metabolic profile is otherwise normal. She has a chronic hyponatremia at about 130+ or mi nus this morning. Lungs are clear. She has O2 sat 95 on room air. The patient does wish to have O2 on at all times. She asked if it was time for her to go on O2. I discussed it going on O2 when do not need, it is not good and she did not qualify for it. She has been asked to see Dr. Whitaker in 1 week for followup. I have suggested to her, she discuss it further with Dr. Whitaker. She is on a di et as tolerated. CODE STATUS: Full, DNR. PENDING AT THE TIME OF DISCHARGE: Nothing. CONSULTATIONS: None. PROCEDURES: None.
[2018-03-13 07:59] VITALS: BP 137/78; TEMP 97.5
[2018-03-13] MEDS ORDERED: predniSONE 20 MG TAB PO SCH (08:00)
[2018-03-13] MEDS ORDERED: Lisinopril 2.5 MG TAB PO SCH (09:00)
[2018-03-13] MEDS ORDERED: Aspirin 81 mg Enteric Coated Tablet PO SCH (09:00)
[2018-03-13] MEDS ORDERED: Enoxaparin Sodium 40 MG/0.4 ML SYRINGE SC SCH (09:00)
[2018-03-13] MEDS: Metoprolol Tartrate 25 MG TAB PO SCH (09:03)
--- NOTE | 2018-03-13 17:26 | ADD-HP ---
ADDENDUM: DATE OF ADMISSION: 03/12/2018 PAST MEDICAL HISTORY: Chronic obstructive pulmonary disease, cardiomyopathy with 30%-35% ejection fr action, chronic pain syndrome or her chronic diagnoses. ALLERGIES: She states EPINEPHRINE makes her feel paralyzed. PAST SURGICAL HISTORY: None. SOCIAL HISTORY: Single. Drinks 2 beers a day. No tobacco since 09/17/2017. Previously smoked up t o 3 packs a day. FAMILY HISTORY: No inherited diseases, no heart disease, diabetes, hypertension, strokes, etc. CURRENT MEDICATIONS: DuoNeb 2.5 q.4 hours p.r.n., aspirin 81 mg a day, Symbicort 160/4.5 two puffs b .i.d., guaifenesin ER 200 mg q.i.d., Hector 7.5/325 two tablets q.4 hours p.r.n. pain, lisinopril 2.5 mg a day, prednisone 40 mg in the morning, Spiriva HandiHaler 1 puff daily, Ventolin HFA 2 puffs q.6 hours p.r.n.
== END 2018-03-13 11:53 | disposition home or self-care (01) ==
LOC: ERS 13:33 → ONC 14:30
PROVIDERS: ADMIT Internal Medicine; ATTEND Internal Medicine
DX: J44.9 Chronic obstructive pulmonary disease, unspecified (principal); R06.03 Acute respiratory distress; E87.1 Hypo-osmolality and hyponatremia; G89.4 Chronic pain syndrome; I42.9 Cardiomyopathy, unspecified; F17.210 Nicotine dependence, cigarettes, uncomplicated; Z79.51 Long term (current) use of inhaled steroids; Z79.82 Long term (current) use of aspirin; Z79.899 Other long term (current) drug therapy; Z88.8 Allergy status to other drugs, medicaments and biological substances; Z66 Do not resuscitate
CPT/HCPCS: 36415; 80048; 85025; 94640; 96374; 96376; 99285; G0378; J1650; J2930; J7506; J7620